=== PATIENT | female | born 1930 | race Caucasian/White ===

== ENCOUNTER 2019-01-15 14:44 | Inpatient (IN) | payer MEDICARE ==
[2019-01-15] MEDS ORDERED: ONDANSETRON 4 MG/2 ML VIAL IVP STA (15:14)
[2019-01-15] MEDS ORDERED: SODIUM CHLORIDE 0.9% 1,000 ML IV ONE ×2 (15:14)
[2019-01-15] MEDS ORDERED: MORPHINE SULFATE 4 MG/ML SYRINGE IV STA (15:14)
[2019-01-15 16:01] LABS: Basophils % (A) 1 %; Eosinophils # (A) 0.1 k/uL (0-0.7); Eosinophils % (A) 1 %; HCT 34.3 % (34.0-46.0); Lymphocytes # (A) 0.9 k/uL (1.0-4.8); Lymphocytes % (A) 13 %; MCH 30.4 pg (25.0-35.0); MCHC 32.2 g/dL (31.0-37.0); MCV 94.4 fL (80.0-100.0); Mean Platelet Volume 6.6; Monocytes # (A) 0.4 k/uL (0-1.0); Monocytes % (A) 6 %; Neutrophils # (A) 5.1 k/uL (1.3-7.7); Neutrophils % (A) 77 %; Platelet Count 296 k/uL (150-450); RBC 3.63 m/uL (3.80-5.40); RDW 12.9 % (11.5-15.5); WBC 6.6 k/uL (3.8-10.6)
[2019-01-15 16:16] LABS: Albumin 3.9 g/dL (3.5-5.0); Calcium 9.7 mg/dL (8.4-10.2); Potassium 4.1 mmol/L (3.5-5.1); Total Bilirubin 0.4 mg/dL (0.2-1.3); Total Protein 6.4 g/dL (6.3-8.2)
--- NOTE | 2019-01-15 16:20 | XR ---
EXAMINATION TYPE: XR Hip Complete LT DATE OF EXAM: 01/15/2019 CLINICAL HISTORY: Falling injury with pain. TECHNIQUE: AP and frogleg views of the left hip are obtained. COMPARISON: None. FINDINGS: Osseous structures are demineralized. There is acute comminuted displaced intertrochanteric fracture left proximal femur. Mild to moderate joint space loss left hip is seen without dislocation . Overlying clothing or blanket material is present. IMPRESSION: There is acute comminuted displaced intertrochanteric fracture left proximal femur.
--- NOTE | 2019-01-15 16:20 | ED ---
Fall HPI <Juancarlos Young - Last Filed: 01/15/19 16:43> - General Source: patient, EMS, RN notes reviewed, old records reviewed Mode of arrival: EMS <Jayde Sanzily - Last Filed: 01/15/19 17:06> - General Chief Complaint: Fall Stated Complaint: Fell leg fx Time Seen by Provider: 01/15/19 14:56 - History of Present Illness Initial Comments: Patient is an 88 rolled female per parents as were his parents today after tripping her own feet while she was at a [employer] function. She reports she's on her left hip. Unable to cannulate afterwards. She arrives via EMS with a short left leg. She has history of hypertension but no other medical history takes a low-dose antihypertensive pill. Patient denies any other injury related to the fall. (Paula Sanz) - Related Data Allergies Allergy/AdvReac Type Severity Reaction Status Date / Time No Known Allergies Allergy Verified 01/15/19 14:54 Review of Systems ROS Other: All systems not noted in ROS Statement are negative. <Juancarlos Young - Last Filed: 01/15/19 16:43> ROS Other: All systems not noted in ROS Statement are negative. <Jayde Sanzily - Last Filed: 01/15/19 17:06> ROS Statement: Those systems with pertinent positive or pertinent negative responses have been documented in the HPI. Past Medical History Past Medical History: Hypertension History of Any Multi-Drug Resistant Organisms: None Reported Past Surgical History: No Surgical Hx Reported Additional Past Surgical History / Comment(s): unsure of surgical hx Past Psychological History: No Psychological Hx Reported Smoking Status: Never smoker Past Alcohol Use History: None Reported Past Drug Use History: None Reported <Paula Sanz - Last Filed: 01/15/19 17:06> General Exam Limitations: no limitations Head exam: Present: atraumatic, normocephalic, normal inspection Eye exam: Present: normal appearance, PERRL, EOMI. Absent: scleral icterus, conjunctival injection, periorbital swelling ENT exam: Present: normal exam, mucous membranes moist Neck exam: Present: normal inspection. Absent: tenderness, meningismus, lymphadenopathy Respiratory exam: Present: normal lung sounds bilaterally. Absent: respiratory distress, wheezes, rales, rhonchi, stridor Cardiovascular Exam: Present: regular rate, normal rhythm, normal heart sounds. Absent: systolic murmur, diastolic murmur, rubs, gallop, clicks GI/Abdominal exam: Present: soft, normal bowel sounds. Absent: distended, tenderness, guarding, rebound, rigid Extremities exam: Present: normal inspection, full ROM, normal capillary refill. Absent: tenderness, pedal edema, joint swelling, calf tenderness Left Hip exam: Present: external rotation, shortening Upper Leg exam: Present: normal inspection, full ROM Knee exam: Present: normal inspection, full ROM Back exam: Present: normal inspection Neurological exam: Present: alert, oriented X3, CN II-XII intact <Paula Sanz - Last Filed: 01/15/19 17:06> - General Exam Comments Initial Comments: 88-year-old female. Alert and oriented 3. No distress. (Paula Sanz) Course <Juancarlos Young - Last Filed: 01/15/19 16:43> Vital Signs 01/15/19 14:49 Temperature 97.6 F Pulse Rate 70 Respiratory 18 Rate Blood Pressure 165/90 O2 Sat by Pulse 95 Oximetry - Reevaluation(s) Reevaluation #1: 01/15/19 16:26 PA supervision: I did a [id number] evaluation of the patient and did discuss the findings with her she has left hip pain x-ray does show evidence of a comminuted left intertrochanteric hip fracture. The case is discussed with Delfina Abebe covering Dr. Cavazos. Patient does demonstrate left hip pain is in the process of getting IV medication. I do agree with the assessment and plan. (Juancarlos Young) Medical Decision Making - Lab Data Result diagrams: 01/15/19 15:23 01/15/19 15:23 <Juancarlos Young - Last Filed: 01/15/19 16:43> - Lab Data Result diagrams: 01/15/19 15:23 01/15/19 15:23 - Radiology Data Radiology results: report reviewed <Paula Sanz - Last Filed: 01/15/19 17:06> - Medical Decision Making 88-year-old female presents emergency department today for chief complaint of. Patient reports that she was at discharge, tripped over. On her left hip. Patient does have shortening and rotation to her left leg. She is evidence of a left hip fracture. On x-ray. She is otherwise relatively healthy, only low- dose of blood pressure medication that she takes. She has no other related to her fall. Discusses actually turn her PA who accepts admission for Dr. walsh. We will consult medicine. Patient will be remaining nothing by mouth at midnight. (Paula Sanz) - Lab Data Lab Results 01/15/19 01/15/19 01/15/19 Range/Units 15:23 15:23 15:23 WBC 6.6 (3.8-10.6) k/uL RBC 3.63 L (3.80-5.40) m/uL Hgb 11.0 L (11.4-16.0) gm/dL Hct 34.3 (34.0-46.0) % MCV 94.4 (80.0-100.0) fL MCH 30.4 (25.0-35.0) pg MCHC 32.2 (31.0-37.0) g/dL RDW 12.9 (11.5-15.5) % Plt Count 296 (150-450) k/uL Neutrophils % 77 % Lymphocytes % 13 % Monocytes % 6 % Eosinophils % 1 % Basophils % 1 % Neutrophils # 5.1 (1.3-7.7) k/uL Lymphocytes # 0.9 L (1.0-4.8) k/uL Monocytes # 0.4 (0-1.0) k/uL Eosinophils # 0.1 (0-0.7) k/uL Basophils # 0.0 (0-0.2) k/uL PT 10.2 (9.0-12.0) sec INR 0.9 (<1.2) APTT 19.8 L (22.0-30.0) sec Sodium 140 (137-145) mmol/L Potassium 4.1 (3.5-5.1) mmol/L Chloride 106 (98-107) mmol/L Carbon Dioxide 28 (22-30) mmol/L Anion Gap 6 mmol/L BUN 34 H (7-17) mg/dL Creatinine 1.10 H (0.52-1.04) mg/dL Est GFR (CKD-EPI)AfAm 53 (>60 ml/min/1.73 sqM) Est GFR (CKD-EPI)NonAf 46 (>60 ml/min/1.73 sqM) Glucose 128 H (74-99) mg/dL Calcium 9.7 (8.4-10.2) mg/dL Total Bilirubin 0.4 (0.2-1.3) mg/dL AST 25 (14-36) U/L ALT 20 (9-52) U/L Alkaline Phosphatase 86 (38-126) U/L Total Protein 6.4 (6.3-8.2) g/dL Albumin 3.9 (3.5-5.0) g/dL 01/15/19 17:05 EKG performed at 1628 shows sinus rhythm with minimal voltage criteria for LVH may be normal variant. Borderline EKG. Ventricular rate of 85 bpm. LA interval is 152 ms. QRS duration is 76 most seconds. QT QTC 372/442 ms. (Paula Sanz) - Radiology Data Acute comminuted displaced intertrochanteric fracture of the left proximal femur. Chest x-ray shows chronic changes primarily without acute cardiac process. (Paula Sanz) Disposition <Juancarlos Young - Last Filed: 01/15/19 16:43> Is patient prescribed a controlled substance at d/c from ED?: No Time of Disposition: 17:06 <Paula Sanz - Last Filed: 01/15/19 17:06> Clinical Impression: Hip fracture, left Disposition: ADMITTED IP TO THIS HOSP Condition: Stable Referrals: Virgilio Wynn MD [Primary Care Provider] - 1-2 days
[2019-01-15 16:21] LABS: INR 0.9 (<1.2); Prothrombin Time 10.2 sec (9.0-12.0)
--- NOTE | 2019-01-15 16:21 | XR ---
EXAMINATION TYPE: XR chest 1V portable DATE OF EXAM: 01/15/2019 COMPARISON: Prior chest x-ray July 06, [address] chest July 10, 2010. HISTORY: Falling injury with hip pain. TECHNIQUE: Single frontal view of the chest is obtained. FINDINGS: There is chronic parenchymal changes without suspicious air focal air space opacity, pleur al effusion, or pneumothorax seen. The cardiac silhouette size shows increased enlargement with athe rosclerotic aorta. 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 Mass effect on the trachea redemonstrated. The osseous struct ures are demineralized. IMPRESSION: Chronic changes and cardiomegaly without acute pulmonary process.
[2019-01-15] MEDS ORDERED: MORPHINE SULFATE 2 MG/ML SYRINGE IM STA (16:32)
[2019-01-15] MEDS ORDERED: MORPHINE SULFATE 2 MG/ML SYRINGE IVP STA (16:33)
[2019-01-15 16:36] LABS: Partial Thromboplastin Time 19.8 sec (22.0-30.0)
[2019-01-15] MEDS ORDERED: LORazepam 2 MG/ML INJ IV STA (16:49)
[2019-01-15] MEDS ORDERED: MORPHINE SULFATE 4 MG/ML SYRINGE IV PRN (17:06)
[2019-01-15] MEDS ORDERED: LORazepam 2 MG/ML INJ IV PRN (17:06)
[2019-01-15] MEDS ORDERED: IBUPROFEN 400 MG TAB PO PRN (17:06)
[2019-01-15] MEDS ORDERED: KETOROLAC 30 MG/ML 1 ML VIAL IVP PRN (17:06)
[2019-01-15] MEDS ORDERED: NALOXONE 0.4 MG/ML 1 ML VIAL IV PRN (17:06)
[2019-01-15] MEDS ORDERED: ONDANSETRON 4 MG/2 ML VIAL IVP PRN (17:06)
[2019-01-15 17:55] LABS: Appearance,Urine Clear (Clear); Bilirubin,Urine Negative (Negative); Blood,Urine Negative (Negative); Color,Urine Light Yellow; Glucose,Urine (UA) Negative (Negative); Ketones,Urine Negative (Negative); Leukocyte Esterase,Urine Trace (Negative); Mucus,Urine Rare /hpf; Nitrite,Urine Negative (Negative); Protein,Urine Negative (Negative); RBC,Urine 3 /hpf (0-5); Specific Gravity,Urine 1.011 (1.001-1.035); Squamous Epithelial Cell,Urine <1 /hpf (0-4); Urobilinogen,Urine <2.0 mg/dL (<2.0); WBC,Urine 4 /hpf (0-5)
[2019-01-15] MEDS: SODIUM CHLORIDE 0.9% 1,000 ML IV SCH (19:58)
[2019-01-15] MEDS: BRIMONIDINE TARTRATE 0.2% DROPS 5 ML BTL LEFT EYE SCH (22:49)
[2019-01-15] MEDS: LATANOPROST 0.005% OPHTH DROPS 2.5 ML BTL LEFT EYE SCH (22:50)
[2019-01-16] MEDS: SODIUM CHLORIDE 0.9% 1,000 ML IV SCH ×3 (04:31→23:44)
[2019-01-16] MEDS: KETOROLAC 30 MG/ML 1 ML VIAL IVP PRN ×3 (07:39→20:55)
[2019-01-16] MEDS: BRIMONIDINE TARTRATE 0.2% DROPS 5 ML BTL LEFT EYE SCH ×2 (07:54→20:55)
[2019-01-16] MEDS: MULTIVITAMINS, THERA 1 EACH TAB PO SCH (07:58)
[2019-01-16] MEDS: PANTOPRAZOLE 40 MG/10 ML VIAL IV SCH (07:58)
[2019-01-16] MEDS: LISINOPRIL-HCTZ 10-12.5 MG 1 EACH TAB PO SCH (07:58)
[2019-01-16] MEDS ORDERED: [UNRECOGNIZED DRUG - OTHER] PO SCH (09:00)
--- NOTE | 2019-01-16 09:43 | P.HPOR ---
History of Present Illness H&P Date: 01/16/19 This is an 88-year-old female admitted for a left hip fracture. Patient states that on 01/15/2019 she was at her taoist when she tripped and fell. Patient states that she was unable to get up after this and was taken to the emergency room for evaluation. X-rays in the emergency room showed an intertrochanteric fracture of the left hip. Patient states that she lives alone and normally ambulates without difficulty. Patient denies any head injury or loss of consciousness. Patient's past medical history significant for hypertension and glaucoma. Patient denies any fever/chills, numbness, weakness, tingling, abdominal pain, shortness of breath or chest pain. Past Medical History Past Medical History: Eye Disorder, Hypertension Additional Past Medical History / Comment(s): glaucoma History of Any Multi-Drug Resistant Organisms: None Reported Past Surgical History: No Surgical Hx Reported Additional Past Surgical History / Comment(s): unsure of surgical hx Past Anesthesia/Blood Transfusion Reactions: Unable to Obtain Past Psychological History: No Psychological Hx Reported Smoking Status: Never smoker Past Alcohol Use History: None Reported Past Drug Use History: None Reported Medications and Allergies Home Medications Medication Instructions Recorded Confirmed Type Brimonidine Tartrate [Alphagan P 1 drops LEFT EYE BID 01/15/19 01/15/19 History 0.2% Ophth Soln] Latanoprost/Pf [Latanoprost 0.005% 1 drop LEFT EYE HS 01/15/19 01/15/19 History Eye Drop] Lisinopril-Hctz 10-12.5 mg 1 tab PO DAILY 01/15/19 01/15/19 History [Zestoretic 10-12.5] Multivitamins, Thera [Multivitamin 1 tab PO DAILY 01/15/19 01/15/19 History (formulary)] Prevident 5,000 Boost Plus 1 applic PO DAILY 01/15/19 01/15/19 History Allergies Allergy/AdvReac Type Severity Reaction Status Date / Time No Known Allergies Allergy Verified 01/15/19 17:45 Physical Examination On exam patient is lying comfortably in bed in no acute distress. Patient is alert and oriented 3. The left lower extremity is shortened and externally rotated. Calf is soft and nontender to palpation. Sensation intact to the left lower extremity. Patient has full range of motion of the left foot and ankle without pain or difficulty. Skin is intact. Neurovascular status and circulatory status are intact. Exams of the head, neck, bilateral upper extremities and right lower extremity are within normal limits. Results X-rays of the left hip and pelvis show a displaced intertrochanteric fracture of the left femur. - Labs Labs: Abnormal Lab Results - Last 24 Hours (Table) 01/15/19 01/15/19 01/15/19 Range/Units 15:23 15:23 15:23 RBC 3.63 L (3.80-5.40) m/uL Hgb 11.0 L (11.4-16.0) gm/dL Lymphocytes # 0.9 L (1.0-4.8) k/uL APTT 19.8 L (22.0-30.0) sec BUN 34 H (7-17) mg/dL Creatinine 1.10 H (0.52-1.04) mg/dL Glucose 128 H (74-99) mg/dL Ur Leukocyte Esterase (Negative) Urine Mucus (None) /hpf 01/15/19 Range/Units 17:17 RBC (3.80-5.40) m/uL Hgb (11.4-16.0) gm/dL Lymphocytes # (1.0-4.8) k/uL APTT (22.0-30.0) sec BUN (7-17) mg/dL Creatinine (0.52-1.04) mg/dL Glucose (74-99) mg/dL Ur Leukocyte Esterase Trace H (Negative) Urine Mucus Rare H (None) /hpf H & H 01/15/19 Range/Units 15:23 Hgb 11.0 L (11.4-16.0) gm/dL Hct 34.3 (34.0-46.0) % Coagulation 01/15/19 Range/Units 15:23 INR 0.9 (<1.2) Result Diagrams: 01/15/19 15:23 01/15/19 15:23 Assessment and Plan Assessment: Hypertension Glaucoma (1) Fall Current Visit: Yes Status: Acute Code(s): W19.XXXA - UNSPECIFIED FALL, INITIAL ENCOUNTER SNOMED Code(s): 7892822 (2) Hip fracture, left Current Visit: Yes Status: Acute Code(s): S72.002A - FRACTURE OF UNSP PART OF NECK OF LEFT FEMUR, INIT SNOMED Code(s): 477349137 Plan: 1. NPO after midnight. 2. Nonweightbearing to the left lower extremity. 3. Continue pain control. 4. Planning for closed reduction and IM nailing of the left hip on 01/17/[address] Griffin Cavazos pending medical clearance and patient consent.
[2019-01-16] MEDS ORDERED: LIDOCAINE 1% 20 ML VIAL (10MG/ML) FOR IV START INTRADERMA PRN (11:53)
[2019-01-16] MEDS ORDERED: ONDANSETRON 4 MG/2 ML VIAL IVP PRN (11:53)
[2019-01-16] MEDS ORDERED: MORPHINE SULFATE 2 MG/ML SYRINGE IV PRN (11:53)
[2019-01-16 13:25] LABS: Glucose,Whole Blood 118 mg/dL (75-99)
--- NOTE | 2019-01-16 16:33 | P.CON ---
Consult Note - . Consult date: 01/16/19 Assessment/Plan:: Reason for consult: Medical clearance for left hip fracture. Mrs. Brady is an 88-year-old female with a past medical history of hypertension and glaucoma admitted to the hospital for left proximal femur fracture. Patient states she was in the charts and after dinner trying to clean up when she turned towards one side and fell on her left hip. After the fall she was not able to ambulate and so brought in by EMS. In the ER patient had an x-ray of the left hip showing comminuted displaced intertrochanteric fracture of the left proximal femur. Patient's past medical history significant for hypertension and glaucoma and she takes latanoprost drops and lisinopril hydrochlorothiazide combination for her hypertension. On review of systems: Patient denies having any chest pain or palpitations. No cough or difficulty in breathing. On route pain nausea vomiting or diarrhea. No dysuria or hematuria. No headaches, blurring of vision.No speech abnormalities. No weakness of her extremities. At baseline patient does her ADLs by herself. Past Medical History Past Medical History: Eye Disorder, Hypertension Additional Past Medical History / Comment(s): glaucoma History of Any Multi-Drug Resistant Organisms: None Reported Past Surgical History: No Surgical Hx Reported Additional Past Surgical History / Comment(s): unsure of surgical hx Past Anesthesia/Blood Transfusion Reactions: Unable to Obtain Past Psychological History: No Psychological Hx Reported Smoking Status: Never smoker Past Alcohol Use History: None Reported Past Drug Use History: None Reported Medications and Allergies Home Medications Medication Instructions Recorded Confirmed Type Brimonidine Tartrate [Alphagan P 1 drops LEFT EYE BID 01/15/19 01/15/19 History 0.2% Ophth Soln] Latanoprost/Pf [Latanoprost 0.005% 1 drop LEFT EYE HS 01/15/19 01/15/19 History Eye Drop] Lisinopril-Hctz 10-12.5 mg 1 tab PO DAILY 01/15/19 01/15/19 History [Zestoretic 10-12.5] Multivitamins, Thera [Multivitamin 1 tab PO DAILY 01/15/19 01/15/19 History (formulary)] Prevident 5,000 Boost Plus 1 applic PO DAILY 01/15/19 01/15/19 History Allergies Allergy/AdvReac Type Severity Reaction Status Date / Time No Known Allergies Allergy Verified 01/15/19 17:45 Physical Exam Vitals: Vital Signs Temp Pulse Pulse Resp BP BP BP 01/16/19 07:00 98.1 F 74 16 157/79 01/16/19 01:43 97.8 F 62 18 135/68 01/15/19 22:52 122/58 01/15/19 19:12 98.0 F 81 16 185/91 01/15/19 18:06 97.7 F 77 18 168/82 Pulse Ox 01/16/19 07:00 95 01/16/19 01:43 95 01/15/19 22:52 01/15/19 19:12 98 01/15/19 18:06 99 Intake and Output 01/16/19 01/16/19 01/16/19 06:59 14:59 22:59 Intake Total 700 Output Total 1000 Balance -1000 700 Intake: Intake, IV Titration 700 Amount Sodium Chloride 0.9% 1, 700 000 ml @ 100 mls/hr IV . Q10H [facility] Rx#:[id number] Output: Urine 1000 Other: Voiding Method Indwelling Catheter GEN. APPEARANCE: alert, in no apparent distress HEENT: Normocephalic. No pallor. No icterus. No JVD. No thyromegaly. RESPIRATORY EXAM: normal lung sounds bilaterally. Absent: respiratory distress, wheezes, rales, rhonchi, stridor CARDIOVASCULAR EXAM: regular rate, normal rhythm, normal heart sounds. Absent: systolic murmur, diastolic murmur, rubs, gallop, clicks GI/ABDOMINAL EXAM: soft, normal bowel sounds. Absent: distended, tenderness, guarding, rebound, rigid EXTREMITIES EXAM: No pitting edema. Left limbus short and externally rotated. NEUROLOGICAL EXAM: alert, oriented X3, no focal deficits. PSYCHIATRIC EXAM: normal affect, normal mood SKIN EXAM: warm, dry, intact, normal color. Absent: rash Results CBC & Chem 7: 01/15/19 15:23 01/15/19 15:23 Labs: Abnormal Lab Results - Last 24 Hours (Table) 01/15/19 01/15/19 01/15/19 Range/Units 15:23 15:23 15:23 RBC 3.63 L (3.80-5.40) m/uL Hgb 11.0 L (11.4-16.0) gm/dL Lymphocytes # 0.9 L (1.0-4.8) k/uL APTT 19.8 L (22.0-30.0) sec BUN 34 H (7-17) mg/dL Creatinine 1.10 H (0.52-1.04) mg/dL Glucose 128 H (74-99) mg/dL POC Glucose (mg/dL) (75-99) mg/dL Ur Leukocyte Esterase (Negative) Urine Mucus (None) /hpf 01/15/19 01/16/19 Range/Units 17:17 13:13 RBC (3.80-5.40) m/uL Hgb (11.4-16.0) gm/dL Lymphocytes # (1.0-4.8) k/uL APTT (22.0-30.0) sec BUN (7-17) mg/dL Creatinine (0.52-1.04) mg/dL Glucose (74-99) mg/dL POC Glucose (mg/dL) 118 H (75-99) mg/dL Ur Leukocyte Esterase Trace H (Negative) Urine Mucus Rare H (None) /hpf ASSESSMENT Comminuted displaced left intertrochanteric femur fracture Hypertension Glaucoma Low BMI of 16.6 PLAN: Patient to be continued on current blood pressure medications. Continue with current pain management. Patient is a low risk surgical candidate and medically cleared for the surgery. Further recommendations to follow depending on the progress of the patient.
[2019-01-16] MEDS: LACTATED RINGERS 1,000 ML IV SCH (19:07)
[2019-01-16] MEDS: LATANOPROST 0.005% OPHTH DROPS 2.5 ML BTL LEFT EYE SCH ×2 (20:55→20:56)
[2019-01-17] MEDS: KETOROLAC 30 MG/ML 1 ML VIAL IVP PRN (05:05)
[2019-01-17] MEDS: MULTIVITAMINS, THERA 1 EACH TAB PO SCH (07:19)
[2019-01-17] MEDS: LISINOPRIL-HCTZ 10-12.5 MG 1 EACH TAB PO SCH (07:43)
[2019-01-17] MEDS: BRIMONIDINE TARTRATE 0.2% DROPS 5 ML BTL LEFT EYE SCH ×2 (07:43→20:03)
[2019-01-17] MEDS: PANTOPRAZOLE 40 MG/10 ML VIAL IV SCH (07:43)
[2019-01-17] MEDS: SODIUM CHLORIDE 0.9% 1,000 ML IV SCH ×3 (07:44→19:54)
[2019-01-17] MEDS ORDERED: KETAMINE 10 MG/ML 20 ML VIAL ONE (09:44)
[2019-01-17] MEDS ORDERED: diphenhydrAMINE 50 MG/ML 1 ML VIAL ONE (09:44)
[2019-01-17] MEDS ORDERED: fentaNYL (PF) 50 MCG/ML 2 ML AMP ONE (09:44)
[2019-01-17] MEDS ORDERED: MIDAZOLAM 2 MG/2 ML VIAL ONE (09:44)
[2019-01-17] MEDS ORDERED: SODIUM CHLORIDE 0.9% 1,000 ML IV ONE ×2 (09:49→12:24)
[2019-01-17] MEDS ORDERED: ceFAZolin 1,000 MG VIAL IVPB ONE (09:59)
[2019-01-17] MEDS ORDERED: NALOXONE 0.4 MG/ML 1 ML VIAL IV PRN (11:19)
[2019-01-17] MEDS ORDERED: MAGNESIUM HYDROXIDE 2,400 MG/10 ML CUP PO PRN (11:19)
[2019-01-17] MEDS ORDERED: HYDROmorphone 0.5 MG/0.5 ML SYRINGE IVP PRN ×2 (11:19)
[2019-01-17] MEDS ORDERED: ACETAMINOPHEN TAB 325 MG TAB PO PRN (11:27)
--- NOTE | 2019-01-17 11:28 | P.OP ---
Date of Procedure: 01/17/19 Preoperative Diagnosis: Closed four-part intertrochanteric fracture of the left hip Postoperative Diagnosis: Closed four-part intertrochanteric fracture of the left hip Procedure(s) Performed: Close reduction and intramedullary nailing of the 4 part intratrochanteric fracture of the left hip Implants: [employer] Intertan nail 125, 11.5 mm x 18 cm. [employer] Intertan integrated-interlocking lag screw, 90 mm lag screw, 85 mm compression screw. [employer] L-P screw, 5.0 mm x 27.5 mm. Anesthesia: spinal Surgeon: Griffin Cavazos Final Dressing Cutter #1: Delfina Abebe Estimated Blood Loss (ml): 150 Pathology: none sent Condition: stable Disposition: PACU Indications for Procedure: This is an 88-year-old female has sustained a ground-level fall at home. Patient was seen in the emergency room and diagnosed with an intertrochanteric fracture of her left hip. After discussing the surgical risks and complications with her and her family, I recommended a close reduction and intramedullary nailing of her left hip. Informed consent was obtained. Operative Findings: The operative findings are consistent with a closed four-part intertrochanteric fracture of the left hip Description of Procedure: The patient was seen in the preoperative area, consent was reviewed, and the operative site was marked with a skin marker. The surgical procedure was discussed at length with both the patient and the family at the bedside. All questions were answered to the best of my ability. The patient was brought to the operating room and placed on the fracture table. Anesthesia was administered by the anesthesia department. 2 g of Ancef were administered intravenously. The patient was placed supine on the fracture table with the fractured extremity in traction boot. The other extremity was placed in a well leg braun and the bony prominences were well padded. A universal timeout was then performed which confirmed the patient's name, surgical site, ALLERGIES, and consent. Fracture reduction was performed with a traction and abduction maneuver which was confirmed with fluoroscopy, both AP and lateral views.. After reduction was performed, the extremity was then prepped with ChloraPrep solution and draped in the usual sterile fashion. Utilizing fluoroscopy to identify the tip of the greater trochanter, a 3 cm longitudinal incision was made just proximal to the greater trochanter. Incision was carried through the fascia to the tip of the greater trochanter. Utilizing a curved awl, the entry point was created at the tip of the greater trochanter and centralized in the AP and lateral planes. These locations were confirmed by fluoroscopy. A guidewire was then inserted down the medullary canal. Sequentially reaming of the femur was performed to 13 mm distally and 17 mm proximally with the channel reamer. After reaming, appropriate size nail was inserted over the guidewire. The nail was inserted to the appropriate depth and the guidewire was removed. Placement of the lisa was confirmed with both AP and lateral fluoroscopic views. The lag screw drill sleeve was placed in the jig and a small skin incision was made on the lateral aspect of the leg and the lag screw drill sleeve was locked into the guide. The 3.2 mm guide pin sleeve was inserted through the lag screw drill sleeve down to bone. A 3.2 mm distally threaded guidewire was inserted through the guide pin sleeve. The guidewire was inserted in the desired position in the femoral head, both anterior and posterior. The lag screw length cage was inserted over the guidepin to the back of the lag screw drill sleeve. Lag screw length was then measured from the cage. Next, the 7.0 mm compression screw starter drill was inserted in the lag screw drill sleeve beneath the guidepin. The compression screw starter drill was advanced under power until it abutted the back and of the lag screw drill sleeve. The 7.0 mm compression screw drill was inserted through the lag screw drill sleeve into the hole created by the compression screw starter drill. This was advanced under fluoroscopy to a depth 5 mm less and the measurement taken for the guidepin. The compression screw drill was removed and the antirotation bar was inserted into the same hole. The 3.2 mm guide pin sleeve was then removed from the drill guide. The lag screw drill was then inserted to a depth that was measured by the lag screw gauge. This was done under fluoroscopy. The lag screw was inserted over the guidewire to the appropriate depth using fluoros copy. Traction was then released. The antirotation bar was then removed and the compression screw was advanced through the lag screw drill sleeve beneath the lag screw. This was advanced to the appropriate compression was achieved. The proximal drill guide was then removed and the distal drill guide was then inserted in the jig. Skin incision was made down to bone and the distal drill guide was then placed. Distal hole was then drilled with a 4.0 mm drill and measured to the appropriate depth. Distal screw was then placed. The entire assembly was then removed and final fluoroscopic x-rays were obtained. The wounds were then irrigated copiously with saline solution. Fascia was closed with 0-Vicryl. Subcutaneous tissues were closed with 2-0 Vicryl and the skin was closed with tomer. Sterile dressings were applied. The patient was transported to the recovery room in stable condition. The public aid eligibility assistant PENNIE Murrieta was required due the complexity of surgery the need for skilled ophthalmology surgical technician for positioning draping retraction and fracture reduction.
[2019-01-17 11:46] LABS: Basophils % (A) 0 %; Eosinophils % (A) 0 %; HGB 10.4 gm/dL (11.4-16.0); Lymphocytes # (A) 0.6 k/uL (1.0-4.8); Lymphocytes % (A) 6 %; MCHC 32.5 g/dL (31.0-37.0); MCV 95.3 fL (80.0-100.0); Mean Platelet Volume 7.2; Monocytes # (A) 0.6 k/uL (0-1.0); Monocytes % (A) 6 %; Neutrophils # (A) 8.7 k/uL (1.3-7.7); Neutrophils % (A) 87 %; Platelet Count 205 k/uL (150-450); RBC 3.35 m/uL (3.80-5.40); RDW 12.8 % (11.5-15.5)
[2019-01-17] MEDS ORDERED: HYDROmorphone 0.5 MG/0.5 ML SYRINGE IVP ONE (12:10)
[2019-01-17] MEDS ORDERED: ONDANSETRON 4 MG/2 ML VIAL IVP ONE (12:22)
--- NOTE | 2019-01-17 12:31 | FL ---
FLUOROSCOPY 54 seconds of fluoroscopy time were utilized during IM rodding of the left hip. 2 images document the procedure.
--- NOTE | 2019-01-17 12:35 | XR ---
EXAMINATION TYPE: XR Hip Limited LT , ONE VIEW DATE OF EXAM ORDERED: 01/17/2019 HISTORY: post op. COMPARISON: None. FINDINGS: There has been a dynamic hip pinning of the patient's left hip. Alignment of the fracture fragments is near-anatomic. IMPRESSION: SATISFACTORY APPEARANCE, POST LEFT HIP PINNING.
[2019-01-17] MEDS: HYDROmorphone 0.5 MG/0.5 ML SYRINGE IVP PRN ×2 (13:03→20:03)
--- NOTE | 2019-01-17 17:53 | P.PN ---
Subjective Progress Note Date: 01/17/19 Principal diagnosis: Status post closed reduction and intramedullary nailing of intertrochanteric fracture of the left hip Mrs. Brady is an 88-year-old female with a past medical history of hypertension and glaucoma admitted to the hospital for left proximal femur fracture. Patient states she was in the charts and after dinner trying to clean up when she turned towards one side and fell on her left hip. After the fall she was not able to ambulate and so brought in by EMS. In the ER patient had an x-ray of the left hip showing comminuted displaced intertrochanteric fracture of the left proximal femur. Patient's past medical history significant for hypertension and glaucoma and she takes latanoprost drops and lisinopril hydrochlorothiazide combination for her hypertension. On 01/27/2019 - patient chest, back from the OR. She had closed reduction and intramedullary nailing of the hand trapped trochanteric fracture of the left hip. She complains of pain in her left hip. She denies having any chest pain or palpitations. No cough or difficulty in breathing. No abdominal pain nausea vomiting or diarrhea. Patient has a Palmer's catheter in place. Patient's labs and medications have been reviewed. Active Medications Acetaminophen (Tylenol Tab) 650 mg PO Q8H PRN PRN Reason: Fever and/ or Pain Hydrocodone Bitart/Acetaminophen ([place] 5-325) 1 each PO Q6HR PRN PRN Reason: Pain Scale 1 to 5 Hydrocodone Bitart/Acetaminophen ([place] 5-325) 2 each PO Q6HR PRN PRN Reason: Pain Scale 6 to 10 Brimonidine Tartrate (Alphagan P 0.2% Oph Soln) 1 drops LEFT EYE BID [facility] Last Admin: 01/17/19 07:43 Dose: 1 drops Documented by: Lisinopril/HCTZ (Zestoretic 10-12.5) 1 each PO DAILY [facility] Last Admin: 01/17/19 07:43 Dose: 1 each Documented by: Hydromorphone HCl (Dilaudid) 0.125 mg IVP Q3HR PRN PRN Reason: Pain Scale 1 to 3 Hydromorphone HCl (Dilaudid) 0.25 mg IVP Q3HR PRN PRN Reason: Pain Scale 4 to 6 Hydromorphone HCl (Dilaudid) 0.5 mg IVP Q3HR PRN PRN Reason: Pain Scale 7 to 10 Last Admin: 01/17/19 13:03 Dose: 0.5 mg Documented by: Sodium Chloride (Saline 0.9%) 1,000 mls @ 100 mls/hr IV .Q10H [facility] Last Admin: 01/17/19 07:44 Dose: 100 mls/hr Documented by: Lactated Ringer's (Lactated Ringers) 1,000 mls @ 20 mls/hr IV .Q24H [facility] Last Admin: 01/16/19 19:07 Dose: Not Given Documented by: Sodium Chloride (Saline 0.9%) 1,000 mls @ 60 mls/hr IV .[id number] [facility] Cefazolin Sodium 2 gm/ Sodium (Chloride) 50 mls @ 100 mls/hr IVPB Q8H [facility] Stop: 01/18/19 02:29 Last Admin: 01/17/19 16:59 Dose: 100 mls/hr Documented by: Latanoprost (Xalatan 0.005%) 1 drops LEFT EYE [facility] Last Admin: 01/16/19 20:56 Dose: Not Given Documented by: Lidocaine HCl (.Xylocaine 1% Inj (10mg/Ml) For Iv Start) 0.1 ml INTRADERMA PER PROTOCOL PRN PRN Reason: IV Start Lorazepam (Ativan) 0.5 mg IV Q6HR PRN PRN Reason: Anxiety Magnesium Hydroxide (Milk Of Magnesia) 2,400 mg PO DAILY PRN PRN Reason: Constipation Multivitamins (Theragran) 1 each PO DAILY [facility] Last Admin: 01/17/19 07:19 Dose: Not Given Documented by: Naloxone HCl (Narcan) 0.2 mg IV Q2M PRN PRN Reason: Opioid Reversal Naloxone HCl (Narcan) 0.2 mg IV Q2M PRN PRN Reason: Opioid Reversal Ondansetron HCl (Zofran) 4 mg IVP Q8HR PRN PRN Reason: Nausea And Vomiting Pantoprazole Sodium (Protonix) 40 mg IV DAILY [facility] Last Admin: 01/17/19 07:43 Dose: 40 mg Documented by: Rivaroxaban (Xarelto) 10 mg PO DAILY [facility] Senna/Docusate Sodium (Senokot-S) 2 each PO [facility] Objective - Vital Signs Vital signs: Vital Signs Temp 98.0 F 01/17/19 12:50 Pulse 95 01/17/19 12:50 Resp 16 01/17/19 12:50 BP 134/68 01/17/19 12:50 Pulse Ox 93 L 01/17/19 12:50 Intake & Output 01/16/19 01/17/19 01/17/19 18:59 06:59 18:59 Intake Total 700 1000 800 Output Total 725 580 Balance 700 275 220 Weight 45.359 kg Intake: IV 800 Intake, IV Titration 700 1000 Amount Sodium Chloride 0.9% 1, 700 1000 000 ml @ 100 mls/hr IV . Q10H [facility] Rx#:[id number] Output: Urine 725 430 Estimated Blood Loss 150 Other: Voiding Method Indwelling Catheter Indwelling Catheter Indwelling Catheter - Exam GEN. APPEARANCE: alert, in no apparent distress HEENT: Normocephalic. No pallor. No icterus. No JVD. No thyromegaly. RESPIRATORY EXAM: normal lung sounds bilaterally. No wheeze or crackles. CARDIOVASCULAR EXAM: regular rate, normal rhythm, normal heart sounds. GI/ABDOMINAL EXAM: soft, normal bowel sounds. No tenderness. EXTREMITIES EXAM: No pitting edema. Left lower extremity - neurovascularly intact. NEUROLOGICAL EXAM: alert, oriented X3, no focal deficits. - Labs CBC & Chem 7: 01/17/19 10:06 01/15/19 15:23 Labs: Abnormal Lab Results - Last 24 Hours (Table) 01/16/19 01/17/19 Range/Units 13:13 10:06 RBC 3.35 L (3.80-5.40) m/uL Hgb 10.4 L (11.4-16.0) gm/dL Hct 32.0 L (34.0-46.0) % Neutrophils # 8.7 H (1.3-7.7) k/uL Lymphocytes # 0.6 L (1.0-4.8) k/uL POC Glucose (mg/dL) 118 H (75-99) mg/dL Assessment and Plan Assessment: ASSESSMENT Comminuted displaced left intertrochanteric femur fracture Status post closed reduction and intramedullary nailing of intertrochanteric fracture of left hip Hypertension Glaucoma Low BMI of 16.6 PLAN: Patient's blood pressure running within normal limits. DVT prophylaxis as per primary care team. Encouraged to do incentive spirometry. Further r ecommendations depending on the progress of the patient.
[2019-01-17] MEDS: LACTATED RINGERS 1,000 ML IV SCH (19:53)
[2019-01-17] MEDS: LATANOPROST 0.005% OPHTH DROPS 2.5 ML BTL LEFT EYE SCH (20:02)
[2019-01-17] MEDS: SENNOSIDES-DOCUSATE SODIUM 1 EACH TAB PO SCH (20:03)
[2019-01-18] MEDS: SODIUM CHLORIDE 0.9% 1,000 ML IV SCH ×3 (05:36→06:20)
[2019-01-18] MEDS: LISINOPRIL-HCTZ 10-12.5 MG 1 EACH TAB PO SCH (08:46)
[2019-01-18] MEDS: RIVAROXABAN 10 MG TAB PO SCH (08:46)
[2019-01-18] MEDS: HYDROcodone/APAP 5-325MG 1 EACH TAB PO PRN ×3 (08:46→22:03)
[2019-01-18] MEDS: BRIMONIDINE TARTRATE 0.2% DROPS 5 ML BTL LEFT EYE SCH ×2 (08:46→22:02)
[2019-01-18] MEDS: MULTIVITAMINS, THERA 1 EACH TAB PO SCH (08:46)
[2019-01-18] MEDS: PANTOPRAZOLE 40 MG/10 ML VIAL IV SCH (08:47)
--- NOTE | 2019-01-18 09:38 | P.PN ---
Subjective Progress Note Date: 01/18/19 This is an 88-year-old female who is status post closed reduction and intramedullary nailing of the left hip. This is postoperative day #1 and patient is seen and evaluated at bedside. Patient states that her pain is controlled, but she has not been out of bed yet. Patient denies any new complaints today. Patient denies any fever/chills, numbness, weakness, tingling, abdominal pain, shortness of breath or chest pain. Objective - Vital Signs Vital signs: Vital Signs Temp 98.0 F 01/18/19 07:32 Pulse 93 01/18/19 07:32 Resp 18 01/18/19 07:32 BP 130/81 01/18/19 07:32 Pulse Ox 94 L 01/18/19 07:32 Intake & Output 01/17/19 01/18/19 01/18/19 18:59 06:59 18:59 Intake Total 1220 Output Total 580 400 Balance 640 -400 Intake: IV 800 Intake, IV Titration 420 Amount Sodium Chloride 0.9% 1, 420 000 ml @ 60 mls/hr IV . [id number] COUNTS INCLUDE 234 BEDS AT THE [facility] Rx#:[id number] Output: Urine 430 400 Estimated Blood Loss 150 Other: Voiding Method Indwelling Catheter Indwelling Catheter Indwelling Catheter - Exam Vital signs are stable. Patient is in no acute distress and is alert and orie nted 3. Calf is soft and nontender to palpation. Dressing is clean, dry, and intact. Patient has full foot and ankle motion without pain or difficulty. Neurovascular status and circulatory status are intact. - Labs CBC & Chem 7: 01/17/19 10:06 01/15/19 15:23 Labs: Abnormal Lab Results - Last 24 Hours (Table) 01/17/19 Range/Units 10:06 RBC 3.35 L (3.80-5.40) m/uL Hgb 10.4 L (11.4-16.0) gm/dL Hct 32.0 L (34.0-46.0) % Neutrophils # 8.7 H (1.3-7.7) k/uL Lymphocytes # 0.6 L (1.0-4.8) k/uL Assessment and Plan Assessment: Hypertension Glaucoma (1) Fall Current Visit: Yes Status: Acute Code(s): W19.XXXA - UNSPECIFIED FALL, INITIAL ENCOUNTER SNOMED Code(s): 4080307 (2) Hip fracture, left Current Visit: Yes Status: Acute Code(s): S72.002A - FRACTURE OF UNSP PART OF NECK OF LEFT FEMUR, INIT SNOMED Code(s): 901817595 Plan: Continue routine postop care and pain control. Continue anticoagulation with Xarelto. Weightbearing as tolerated with a walker and physical therapy. Daily dressing changes. Appreciate input from medicine. Likely discharge to ECF in the next 24-48 hours
--- NOTE | 2019-01-18 12:05 | P.PN ---
Subjective Patient resting in bed complains of chest pain. EKG and troponins ordered. Patient sitting up in chair no swelling or pain to calves Objective - Vital Signs Vital signs: Vital Signs Temp 98.0 F 01/18/19 07:32 Pulse 95 01/18/19 11:22 Resp 18 01/18/19 07:32 BP 95/57 01/18/19 11:22 Pulse Ox 94 L 01/18/19 07:32 Intake & Output 01/17/19 01/18/19 01/18/19 18:59 06:59 18:59 Intake Total 1220 Output Total 580 400 Balance 640 -400 Intake: IV 800 Intake, IV Titration 420 Amount Sodium Chloride 0.9% 1, 420 000 ml @ 60 mls/hr IV . [id number] [facility] Rx#:[id number] Output: Urine 430 400 Estimated Blood Loss 150 Other: Voiding Method Indwelling Catheter Indwelling Catheter Indwelling Catheter - Constitutional General appearance: Present: mild distress - EENT Eyes: Present: PERRLA Ears: bilateral: normal - Neck Neck: Present: normal ROM - Respiratory Respiratory: bilateral: CTA - Cardiovascular Rhythm: regular - Gastrointestinal General gastrointestinal: Present: normal bowel sounds, soft - Integumentary Integumentary: Present: normal - Neurologic Neurologic: Present: CNII-XII intact - Musculoskeletal Musculoskeletal: Present: generalized weakness - Psychiatric Psychiatric: Present: A&O x's 3 - Labs CBC & Chem 7: 01/17/19 10:06 01/15/19 15:23 - Imaging and Cardiology Chest x-ray: report reviewed Assessment and Plan Plan: Assessment Fall comminuted left intertrochanteric fracture Post closed reduction and nailing of intertrochanter fracture of left hip Hypertension Glaucoma Chest pain Plan EKG and troponin series Long-term plan is transfer to [facility] for rehab
[2019-01-18] MEDS: LACTATED RINGERS 1,000 ML IV SCH (15:06)
[2019-01-18] MEDS: SENNOSIDES-DOCUSATE SODIUM 1 EACH TAB PO SCH (22:02)
[2019-01-18] MEDS: LATANOPROST 0.005% OPHTH DROPS 2.5 ML BTL LEFT EYE SCH (22:03)
[2019-01-19 07:30] LABS: Basophils % (A) 0 %; Eosinophils # (A) 0.3 k/uL (0-0.7); Eosinophils % (A) 4 %; Lymphocytes # (A) 1.2 k/uL (1.0-4.8); Lymphocytes % (A) 12 %; MCH 30.9 pg (25.0-35.0); MCHC 31.7 g/dL (31.0-37.0); MCV 97.5 fL (80.0-100.0); Mean Platelet Volume 7.8; Monocytes # (A) 0.7 k/uL (0-1.0); Monocytes % (A) 7 %; Neutrophils # (A) 7.1 k/uL (1.3-7.7); Neutrophils % (A) 75 %; Platelet Count 217 k/uL (150-450); RBC 1.83 m/uL (3.80-5.40); RDW 13.4 % (11.5-15.5); WBC 9.5 k/uL (3.8-10.6)
[2019-01-19 07:44] LABS: HCT 17.8 % (34.0-46.0); HGB 5.7 gm/dL (11.4-16.0)
[2019-01-19] MEDS: RIVAROXABAN 10 MG TAB PO SCH (08:12)
[2019-01-19] MEDS: MULTIVITAMINS, THERA 1 EACH TAB PO SCH (08:12)
[2019-01-19] MEDS: LISINOPRIL-HCTZ 10-12.5 MG 1 EACH TAB PO SCH (08:12)
[2019-01-19] MEDS: BRIMONIDINE TARTRATE 0.2% DROPS 5 ML BTL LEFT EYE SCH ×2 (08:12→20:10)
[2019-01-19] MEDS: PANTOPRAZOLE 40 MG TABLET PO SCH (08:12)
[2019-01-19] MEDS: HYDROcodone/APAP 5-325MG 1 EACH TAB PO PRN ×2 (08:12→18:59)
[2019-01-19] MEDS: SODIUM CHLORIDE 0.9% 1,000 ML IV SCH ×5 (08:14→23:42)
[2019-01-19 09:33] LABS: Hypochromasia Slight; MCHC 31.4 g/dL (31.0-37.0); MCV 98.8 fL (80.0-100.0); Mean Platelet Volume 8.8; Platelet Count 234 k/uL (150-450); RBC 1.79 m/uL (3.80-5.40); RDW 13.3 % (11.5-15.5); WBC 10.6 k/uL (3.8-10.6)
[2019-01-19 09:41] LABS: HGB 5.5 gm/dL (11.4-16.0)
[2019-01-19 09:42] LABS: HCT 17.6 % (34.0-46.0)
[2019-01-19] MEDS ORDERED: FUROSEMIDE 10 MG/ML 2 ML VIAL IV ONE (11:16)
--- NOTE | 2019-01-19 11:40 | P.PN ---
Subjective Patient found to have a hemoglobin of 5.7 this morning. Stat CBC and blood transfusion ordered 2 units. Patient is warm and dry but pale. Alert and orientated. Patient had negative occult blood for stool. No large hematoma noted Objective - Vital Signs Vital signs: Vital Signs Temp 98.0 F 01/19/19 11:21 Pulse 86 01/19/19 11:34 Resp 20 01/19/19 11:21 BP 104/61 01/19/19 11:34 Pulse Ox 99 01/19/19 11:34 Intake & Output 01/18/19 01/19/19 01/19/19 18:59 06:59 18:59 Intake Total 800 0 Output Total 200 Balance 600 0 Intake: IV 800 Sodium Chloride 0.9% 1, 800 000 ml @ 100 mls/hr IV . Q10H [facility] Rx#:[id number] Blood Product 0 Rc Pheresis As-3 Unit 0 [id number] Output: Urine 200 Uretheral (Palmer) 200 Other: Voiding Method Indwelling Catheter Indwelling Catheter - Constitutional General appearance: Present: mild distress - EENT Eyes: Present: PERRLA Ears: bilateral: normal - Neck Neck: Present: normal ROM - Respiratory Respiratory: bilateral: CTA - Cardiovascular Rhythm: regular - Gastrointestinal General gastrointestinal: Present: soft - Integumentary Integumentary: Present: pale - Neurologic Neurologic: Present: CNII-XII intact - Musculoskeletal Musculoskeletal Comment(s): Left hip pain dressing intact Musculoskeletal: Present: generalized weakness - Psychiatric Psychiatric: Present: A&O x's 3, appropriate affect - Labs CBC & Chem 7: 01/19/19 09:17 01/15/19 15:23 Labs: Abnormal Lab Results - Last 24 Hours (Table) 01/17/19 01/19/19 01/19/19 Range/Units 09:09 06:55 09:17 RBC 1.83 L 1.79 L (3.80-5.40) m/uL Hgb 5.7 L* D 5.5 L* (11.4-16.0) gm/dL Hct 17.8 L* 17.6 L* (34.0-46.0) % Crossmatch See Detail Assessment and Plan Plan: Assessment Comminuted displaced left intertrochanter fracture post reduction of intertrochanter fracture left hip Hypertension Postop anemia 5.7 not expected Glaucoma Chest pain troponin negative Plan Blood transfusion monitor hemoglobin [facility]
--- NOTE | 2019-01-19 13:37 | CDI ---
Documentation Clarification Form Date: 01/19/2019 1:32:20 PM From: Yajaira HillsNoelYUNIOR vieira, CCDS Admit Date: 01/15/2019 4:27:00 PM Patient Name: Edith Brady Visit Number: [id number] Discharge Date: ATTENTION: The Clinical Documentation Specialists (CDI) and [facility] Coding Staff appreciate your assistance in clarifying documentation. Please respond to the clarification below the line at the bottom and electronically sign. The CDI & [facility] Coding staff will review the response and follow-up if needed. Please note: Queries are made part of the Legal Health Record. If you have any questions, please contact the author of this message via ITS. Dr. Virgilio Wynn: A diagnosis of anemia lacks specificity to accurately reflect your patients severity of condition and clarification is needed. Per the 01/19 medical management progress note: "Postop anemia 5.7 not expected." History/Risk Factors: Hypertension, glaucoma. Clinical indicators: Presented after a fall with left IT fracture status post repair. Hemoglobin: 11.0*, 10.4* - 5.7 - 5.5 Hematocrit: 34.3 - 32.0* - 17.8 - 17.6 Treatment: Closed reduction & intramedullary nailing of the 4 pat IT fracture of the left hip. IV Ms, IV Zofran, IV fl 100, IV fluid bolus x1, IV Ativan, IV Toradol. Blood transfusion on 01/19 1 unit PRBCs. In order to capture the severity of condition, please clarify the type of anemia and etiology if known: Acute blood loss anemia Acute on chronic blood loss anemia Chronic blood loss anemia Iron deficiency anemia Hemolytic anemia Drug induced anemia Nutritional anemia Unable to determine Other, please specify (Last Revision: November 2016) MTDD
--- NOTE | 2019-01-19 14:13 | P.PN ---
Subjective Progress Note Date: 01/19/19 This is an 88-year-old female who is status post closed reduction and intramedullary nailing of the left hip. This is postoperative day #3 and patient is seen and evaluated at bedside with Dr. Griffin Cavazos. Patient states that her pain is controlled today. Patient's hemoglobin is 5.5 today. Patient denies any dizziness. Patient denies any new complaints today. Patient denies any fever/chills, numbness, weakness, tingling, abdominal pain, shortness of breath or chest pain. Objective - Vital Signs Vital signs: Vital Signs Temp 98.3 F 01/19/19 11:51 Pulse 84 01/19/19 11:51 Resp 20 01/19/19 11:51 BP 103/59 01/19/19 11:51 Pulse Ox 98 01/19/19 11:51 Intake & Output 01/18/19 01/19/19 01/19/19 18:59 06:59 18:59 Intake Total 800 310 Output Total 200 Balance 600 310 Intake: IV 800 Sodium Chloride 0.9% 1, 800 000 ml @ 100 mls/hr IV . Q10H [facility] Rx#:[id number] Blood Product 310 Rc Pheresis As-3 Unit 310 [id number] Output: Urine 200 Uretheral (Palmer) 200 Other: Voiding Method Indwelling Catheter Indwelling Catheter - Exam Vital signs are stable. Patient is in no acute distress and is alert and orient ed 3. Calf is soft and nontender to palpation. Dressing is clean, dry, and intact. There is minimal swelling of the left lower extremity. Compartments are soft. Patient has full foot and ankle motion without pain or difficulty. Neurovascular status and circulatory status are intact. - Labs CBC & Chem 7: 01/19/19 09:17 01/15/19 15:23 Labs: Abnormal Lab Results - Last 24 Hours (Table) 01/17/19 01/19/19 01/19/19 Range/Units 09:09 06:55 09:17 RBC 1.83 L 1.79 L (3.80-5.40) m/uL Hgb 5.7 L* D 5.5 L* (11.4-16.0) gm/dL Hct 17.8 L* 17.6 L* (34.0-46.0) % Crossmatch See Detail Assessment and Plan Assessment: Hypertension Glaucoma (1) Fall Current Visit: Yes Status: Acute Code(s): W19.XXXA - UNSPECIFIED FALL, INITIAL ENCOUNTER SNOMED Code(s): 7463212 (2) Hip fracture, left Current Visit: Yes Status: Acute Code(s): S72.002A - FRACTURE OF UNSP PART OF NECK OF LEFT FEMUR, INIT SNOMED Code(s): 165229642 Plan: Continue routine postop care and pain control. Xarelto is being held due to hemoglobin of 5.5. Patient did receive a blood transfusion. Weightbearing as tolerated with a walker and physical therapy. Daily dressing changes. Appreciate input from medicine. Likely discharge to ECF in the next 24-48 hours.
[2019-01-19] MEDS: LACTATED RINGERS 1,000 ML IV SCH (18:09)
[2019-01-19] MEDS: SENNOSIDES-DOCUSATE SODIUM 1 EACH TAB PO SCH (20:09)
[2019-01-19] MEDS: LATANOPROST 0.005% OPHTH DROPS 2.5 ML BTL LEFT EYE SCH (20:09)
[2019-01-19 22:39] LABS: Basophils % (A) 0 %; Eosinophils # (A) 0.4 k/uL (0-0.7); Eosinophils % (A) 5 %; HCT 23.2 % (34.0-46.0); Lymphocytes # (A) 1.3 k/uL (1.0-4.8); Lymphocytes % (A) 13 %; MCH 31.9 pg (25.0-35.0); MCHC 33.7 g/dL (31.0-37.0); MCV 94.8 fL (80.0-100.0); Monocytes # (A) 0.7 k/uL (0-1.0); Monocytes % (A) 7 %; Neutrophils # (A) 6.9 k/uL (1.3-7.7); Neutrophils % (A) 72 %; Platelet Count 207 k/uL (150-450); RBC 2.45 m/uL (3.80-5.40); RDW 13.8 % (11.5-15.5); WBC 9.6 k/uL (3.8-10.6)
[2019-01-19 22:41] LABS: HGB 7.8 gm/dL (11.4-16.0)
[2019-01-20] MEDS: SODIUM CHLORIDE 0.9% 1,000 ML IV SCH ×3 (06:35→16:06)
[2019-01-20] MEDS: LACTATED RINGERS 1,000 ML IV SCH (07:15)
--- NOTE | 2019-01-20 08:28 | P.PN ---
Subjective Progress Note Date: 01/20/19 This is an 88-year-old female who is status post closed reduction and intramedullary nailing of the left hip. This is postoperative day #4 and patient is seen and evaluated at bedside with Dr. Griffin Cavazos. Patient does complain of some soreness in the left hip today and states that she was not up and walking yesterday due to her low hemoglobin. The patient's hemoglobin has improved today. Patient denies any dizziness. Patient denies any new complaints today. Patient denies any fever/chills, numbness, weakness, tingling, abdominal pain, shortness of breath or chest pain. Objective - Vital Signs Vital signs: Vital Signs Temp 98.1 F 01/20/19 07:30 Pulse 82 01/20/19 07:30 Resp 16 01/20/19 07:30 BP 151/68 01/20/19 07:30 Pulse Ox 98 01/20/19 07:30 Intake & Output 01/19/19 01/20/19 01/20/19 18:59 06:59 18:59 Intake Total 1110 1120 Output Total 800 725 Balance 310 395 Weight 45.359 kg Intake: IV 800 Sodium Chloride 0.9% 1, 800 000 ml @ 100 mls/hr IV . Q10H [facility] Rx#:[id number] Intake, IV Titration 400 Amount Sodium Chloride 0.9% 1, 400 000 ml @ 60 mls/hr IV . [id number] [facility] Rx#:[id number] Oral 100 Blood Product 310 620 Rc Cpda-1 Unit 0 310 [id number] Rc Pheresis As-3 Unit 310 [id number] Output: Urine 800 725 Uretheral (Palmer) 800 Other: Voiding Method Indwelling Catheter - Exam Vital signs are stable. Patient is in no acute distress and is alert and oriented 3. Calf is soft and nontender to palpation. Dressing is clean, dry, and intact. There is minimal swelling of the left lower extremity. Patient has full foot and ankle motion without pain or difficulty. Neurovascular status and circulatory status are intact. - Labs CBC & Chem 7: 01/19/19 22:02 01/15/19 15:23 Labs: Abnormal Lab Results - Last 24 Hours (Table) 01/17/19 01/19/19 01/19/19 Range/Units 09:09 09:17 22:02 RBC 1.79 L 2.45 L (3.80-5.40) m/uL Hgb 5.5 L* 7.8 L D (11.4-16.0) gm/dL Hct 17.6 L* 23.2 L (34.0-46.0) % Crossmatch See Detail Assessment and Plan Assessment: Hypertension Glaucoma (1) Fall Current Visit: Yes Status: Acute Code(s): W19.XXXA - UNSPECIFIED FALL, INITIAL ENCOUNTER SNOMED Code(s): 8743355 (2) Hip fracture, left Current Visit: Yes Status: Acute Code(s): S72.002A - FRACTURE OF UNSP PART OF NECK OF LEFT FEMUR, INIT SNOMED Code(s): 379080494 Plan: Continue routine postop care and pain control. Xarelto is being held. Hemoglobin has improved to 7.8. Patient is asymptomatic. Weightbearing as tolerated with a walker and physical therapy. Daily dressing changes. Appreciate input from medicine. Planning on discharge to ECF when cleared medically.
[2019-01-20] MEDS: LISINOPRIL-HCTZ 10-12.5 MG 1 EACH TAB PO SCH (08:45)
[2019-01-20] MEDS: MULTIVITAMINS, THERA 1 EACH TAB PO SCH (08:45)
[2019-01-20] MEDS: BRIMONIDINE TARTRATE 0.2% DROPS 5 ML BTL LEFT EYE SCH ×2 (08:45→21:17)
[2019-01-20] MEDS: PANTOPRAZOLE 40 MG TABLET PO SCH (08:45)
[2019-01-20] MEDS: HYDROcodone/APAP 5-325MG 1 EACH TAB PO PRN (08:49)
[2019-01-20 09:07] LABS: HCT 25.1 % (34.0-46.0); HGB 8.6 gm/dL (11.4-16.0); MCH 32.6 pg (25.0-35.0); MCHC 34.5 g/dL (31.0-37.0); MCV 94.6 fL (80.0-100.0); Mean Platelet Volume 7.8; Platelet Count 215 k/uL (150-450); RBC 2.65 m/uL (3.80-5.40); RDW 14.2 % (11.5-15.5); WBC 9.3 k/uL (3.8-10.6)
[2019-01-20 09:15] LABS: Calcium 8.5 mg/dL (8.4-10.2); Potassium 3.3 mmol/L (3.5-5.1)
[2019-01-20] MEDS ORDERED: Potassium Replacement Protocol 1 EACH MISC MISCELLANE PRN (09:49)
[2019-01-20] MEDS: POTASSIUM CHLORIDE ER 20 MEQ TAB.ER PO SCH ×2 (09:56→11:02)
--- NOTE | 2019-01-20 10:25 | P.PN ---
Subjective Hemoglobin improved with transfusion 7.8 Marizol. Noted to be hypokalemic at 3.3 potassium replacement ordered. Patient remains awake and alert than pain control Objective - Vital Signs Vital signs: Vital Signs Temp 98.1 F 01/20/19 07:30 Pulse 82 01/20/19 07:30 Resp 16 01/20/19 07:30 BP 151/68 01/20/19 07:30 Pulse Ox 98 01/20/19 07:30 Intake & Output 01/19/19 01/20/19 01/20/19 18:59 06:59 18:59 Intake Total 1110 1120 Output Total 800 725 Balance 310 395 Weight 45.359 kg Intake: IV 800 Sodium Chloride 0.9% 1, 800 000 ml @ 100 mls/hr IV . Q10H [facility] Rx#:[id number] Intake, IV Titration 400 Amount Sodium Chloride 0.9% 1, 400 000 ml @ 60 mls/hr IV . [id number] [facility] Rx#:[id number] Oral 100 Blood Product 310 620 Rc Cpda-1 Unit 0 310 [id number] Rc Pheresis As-3 Unit 310 [id number] Output: Urine 800 725 Uretheral (Palmer) 800 Other: Voiding Method Indwelling Catheter Indwelling Catheter - Constitutional General appearance: Present: mild distress - EENT Eyes: Present: PERRLA Ears: bilateral: normal - Neck Neck: Present: normal ROM - Respiratory Respiratory: bilateral: CTA - Cardiovascular Rhythm: regular - Gastrointestinal General gastrointestinal: Present: soft - Integumentary Integumentary Comment(s): Dressing to left hip Integumentary: Present: normal - Neurologic Neurologic: Present: CNII-XII intact - Musculoskeletal Musculoskeletal: Present: generalized weakness - Psychiatric Psychiatric: Present: A&O x's 3 - Labs CBC & Chem 7: 01/20/19 08:38 01/20/19 08:38 Labs: Abnormal Lab Results - Last 24 Hours (Table) 01/17/19 01/19/19 01/20/19 Range/Units 09:09 22:02 08:38 RBC 2.45 L 2.65 L (3.80-5.40) m/uL Hgb 7.8 L D 8.6 L (11.4-16.0) gm/dL Hct 23.2 L 25.1 L (34.0-46.0) % Potassium (3.5-5.1) mmol/L Chloride (98-107) mmol/L BUN (7-17) mg/dL Glucose (74-99) mg/dL Crossmatch See Detail 01/20/19 Range/Units 08:38 RBC (3.80-5.40) m/uL Hgb (11.4-16.0) gm/dL Hct (34.0-46.0) % Potassium 3.3 L (3.5-5.1) mmol/L Chloride 112 H (98-107) mmol/L BUN 29 H (7-17) mg/dL Glucose 135 H (74-99) mg/dL Crossmatch Assessment and Plan Plan: Assessment Comminuted displaced left intertrochanter femur fracture postop open reduction and nailing of intertrochanter fracture Hypertension Glaucoma Anemia postop unexpected posttransfusion Plan Continue to monitor patient Rehab transfer to [facility] when medically stable
[2019-01-20] MEDS: SENNOSIDES-DOCUSATE SODIUM 1 EACH TAB PO SCH (21:17)
[2019-01-20] MEDS: LATANOPROST 0.005% OPHTH DROPS 2.5 ML BTL LEFT EYE SCH (21:17)
[2019-01-21] MEDS: SODIUM CHLORIDE 0.9% 1,000 ML IV SCH ×4 (01:17→14:21)
[2019-01-21] MEDS: HYDROcodone/APAP 5-325MG 1 EACH TAB PO PRN ×2 (05:48→20:06)
[2019-01-21] MEDS: MULTIVITAMINS, THERA 1 EACH TAB PO SCH (08:53)
[2019-01-21] MEDS: LISINOPRIL-HCTZ 10-12.5 MG 1 EACH TAB PO SCH (08:53)
[2019-01-21] MEDS: PANTOPRAZOLE 40 MG TABLET PO SCH (08:53)
[2019-01-21] MEDS: BRIMONIDINE TARTRATE 0.2% DROPS 5 ML BTL LEFT EYE SCH ×2 (08:53→20:07)
[2019-01-21] MEDS: LACTATED RINGERS 1,000 ML IV SCH (08:54)
--- NOTE | 2019-01-21 09:08 | P.PN ---
Subjective Progress Note Date: 01/21/19 This is an 88-year-old female who is status post closed reduction and intramedullary nailing of the left hip. This is postoperative day #5 and patient is seen and evaluated at bedside. Patient states that she has been able to transfer to a chair with physical therapy Patient states that her pain is well controlled and she denies any new complaints today. Patient denies any fever/chills, numbness, weakness, tingling, abdominal pain, shortness of breath or chest pain. Objective - Vital Signs Vital signs: Vital Signs Temp 98.7 F 01/21/19 07:04 Pulse 58 L 01/21/19 07:04 Resp 15 01/21/19 07:04 BP 162/80 01/21/19 07:04 Pulse Ox 96 01/21/19 07:04 Intake & Output 01/20/19 01/21/19 01/21/19 18:59 06:59 18:59 Intake Total 700 120 Output Total 350 300 Balance 350 -180 Intake: Intake, IV Titration 700 120 Amount Sodium Chloride 0.9% 1, 700 000 ml @ 100 mls/hr IV . Q10H [facility] Rx#:[id number] Sodium Chloride 0.9% 1, 120 000 ml @ 60 mls/hr IV . [id number] [facility] Rx#:[id number] Output: Urine 350 300 Other: Voiding Method Indwelling Catheter - Exam Vital signs are stable. Patient is in no acute distress and is alert and oriented 3. Calf is soft and nontender to palpation. Dressing is clean, dry, and intact. There is minimal swelling of the left lower extremity. Patient has full foot and ankle motion without pain or difficulty. Sensation intact. Neurovascular status and circulatory status are intact. - Labs CBC & Chem 7: 01/20/19 08:38 01/20/19 08:38 Labs: Abnormal Lab Results - Last 24 Hours (Table) 01/20/19 01/20/19 Range/Units 08:38 08:38 RBC 2.65 L (3.80-5.40) m/uL Hgb 8.6 L (11.4-16.0) gm/dL Hct 25.1 L (34.0-46.0) % Potassium 3.3 L (3.5-5.1) mmol/L Chloride 112 H (98-107) mmol/L BUN 29 H (7-17) mg/dL Glucose 135 H (74-99) mg/dL Assessment and Plan Assessment: Hypertension Glaucoma (1) Fall Current Visit: Yes Status: Acute Code(s): W19.XXXA - UNSPECIFIED FALL, INITIAL ENCOUNTER SNOMED Code(s): 4603265 (2) Hip fracture, left Current Visit: Yes Status: Acute Code(s): S72.002A - FRACTURE OF UNSP PART OF NECK OF LEFT FEMUR, INIT SNOMED Code(s): 338693237 Plan: Continue routine postop care and pain control. Anticoagulation per internal medicine. Hemoglobin has improved. Patient is asymptomatic. Weightbearing as tolerated with a walker and physical therapy. Daily dressing changes. Appreciate input from medicine. Planning on discharge to ECF when cleared medically.
--- NOTE | 2019-01-21 09:36 | CDI ---
Documentation Clarification Form Date: 01/19/2019 1:32:00 PM From: Yajaira HillsNoelYUNIOR vieira, CCDS Admit Date: 01/15/2019 4:27:00 PM Patient Name: Edith Brady Visit Number: [id number] Discharge Date: ATTENTION: The Clinical Documentation Specialists (CDI) and [facility] Coding Staff appreciate your assistance in clarifying documentation. Please respond to the clarification below the line at the bottom and electronically sign. The CDI & [facility] Coding staff will review the response and follow-up if needed. Please note: Queries are made part of the Legal Health Record. If you have any questions, please contact the author of this message via ITS. Dr. Virgilio Wynn: A diagnosis of anemia lacks specificity to accurately reflect your patients severity of condition and clarification is needed. Per the 01/19 medical management progress note: "Postop anemia 5.7 not expected." Per the 01/19 medical management progress note: "Anemia postop unexpected posttransfusion". History/Risk Factors: Hypertension, glaucoma. Clinical indicators: Presented after a fall with left IT fracture status post repair. Hemoglobin: 11.0*, 10.4* - 5.7 - 5.5 Hematocrit: 34.3 - 32.0* - 17.8 - 17.6 Treatment: Closed reduction & intramedullary nailing of the 4 pat IT fracture of the left hip. IV Ms, IV Zofran, IV fl 100, IV fluid bolus x1, IV Ativan, IV Toradol. Blood transfusion on 01/19 1 unit PRBCs. In order to capture the severity of condition, please clarify the acuity of anemia and etiology if known: Acute blood loss anemia Acute on chronic blood loss anemia Chronic blood loss anemia Drug induced anemia Unable to determine Other, please specify (Last Revision: November 2016) Acute blood loss anemia MTDD
[2019-01-21 10:26] LABS: HCT 25.7 % (34.0-46.0); HGB 8.4 gm/dL (11.4-16.0); MCHC 32.7 g/dL (31.0-37.0); MCV 94.9 fL (80.0-100.0); Mean Platelet Volume 7.8; Platelet Count 233 k/uL (150-450); RBC 2.71 m/uL (3.80-5.40); RDW 14.2 % (11.5-15.5); WBC 9.9 k/uL (3.8-10.6)
[2019-01-21 10:40] LABS: Calcium 8.5 mg/dL (8.4-10.2); Magnesium 1.7 mg/dL (1.6-2.3); Potassium 3.9 mmol/L (3.5-5.1)
--- NOTE | 2019-01-21 13:02 | P.PN ---
Subjective Patient developed a tachycardia rhythm rate 152 EKG ordered and cardiology consultation. Hemoglobin maintaining 8.4. Patient awake and alert. Patient may be restarted on Xarelto orthopedics signed off case will assume care Objective - Vital Signs Vital signs: Vital Signs Temp 98.7 F 01/21/19 07:04 Pulse 58 L 01/21/19 07:04 Resp 15 01/21/19 07:04 BP 162/80 01/21/19 07:04 Pulse Ox 96 01/21/19 07:04 Intake & Output 01/20/19 01/21/19 01/21/19 18:59 06:59 18:59 Intake Total 700 120 180 Output Total 350 300 Balance 350 -180 180 Intake: Intake, IV Titration 700 120 Amount Sodium Chloride 0.9% 1, 700 000 ml @ 100 mls/hr IV . Q10H [facility] Rx#:[id number] Sodium Chloride 0.9% 1, 120 000 ml @ 60 mls/hr IV . [id number] [facility] Rx#:[id number] Oral 180 Output: Urine 350 300 Other: Voiding Method Indwelling Catheter Indwelling Catheter - Constitutional General appearance: Present: mild distress - EENT Eyes: Present: PERRLA Ears: bilateral: normal - Neck Neck: Present: normal ROM - Respiratory Respiratory: bilateral: CTA - Cardiovascular Rhythm: irregularly irregular Abnormal Heart Sounds: Present: systolic murmur - Gastrointestinal General gastrointestinal: Present: soft - Integumentary Integumentary: Present: normal - Neurologic Neurologic: Present: CNII-XII intact - Musculoskeletal Musculoskeletal: Present: generalized weakness - Psychiatric Psychiatric: Present: A&O x's 3, appropriate affect, intact judgment & insight - Labs CBC & Chem 7: 01/21/19 10:10 01/21/19 10:10 Labs: Abnormal Lab Results - Last 24 Hours (Table) 01/21/19 01/21/19 Range/Units 10:10 10:10 RBC 2.71 L (3.80-5.40) m/uL Hgb 8.4 L (11.4-16.0) gm/dL Hct 25.7 L (34.0-46.0) % Chloride 112 H (98-107) mmol/L BUN 26 H (7-17) mg/dL Glucose 123 H (74-99) mg/dL Assessment and Plan Plan: Assessment Comminuted displaced left intertrochanteric femur fracture postop open reduction of an urgent care fraction ( Postoperative anemia 5.7 acute blood loss unexpected Hypertension glaucoma Cardiac arrhythmia hypokalemia corrected Plan Cardiology consultation regarding arrhythmia Hopeful discharge soon to [facility] rehab
--- NOTE | 2019-01-21 14:04 | P.CRDCN ---
History of Present Illness History of present illness: HISTORY OF PRESENTING ILLNESS This is a pleasant 88-year-old female past medical history significant for glaucoma and hypertension. She has somewhat of a poor historian. She stat es overall she is quite healthy and doesn't recall any significant cardiac history. She does not follow with a film reader. We have been asked to see in consultation for irregular heartbeat. She initially presented to the hospital on January 15 after suffering a trip and fall. She was found to have a left intertrochanteric hip fracture. On January 17 she underwent a closed reduction and IM nailing of the left hip. Her hospital stay was complicated by profound anemia with a hemoglobin of 5.7 on postoperative day #2. She was transfused 2 units of pack red blood cells. Repeat hemoglobin today is 8.6 with platelets of 215. Yesterday during routine vital signs at 3:00 her heart rate was noted to be 152 with a blood pressure 109/63. EKG was performed revealing multifocal atrial tachycardia with a heart rate of 145. The patient does not recall this episode as being anything significant. She denies having palpitations, chest pain, shortness of breath or dizziness. Chest x-ray on admission was negative for an acute cardiopulmonary process. Laboratory data reviewed, WBC 9.3, hemo globin 8.6, platelets 215, sodium 143, potassium 3.3, creatinine 0.95. Prior to surgery she had 2 EKG's performed both sinus with no ST or T-wave changes. Current daily cardiac medications include zestoretic 10/12.5 mg daily. There is no old echo or stress test to review. She is seen and examined sitting up in the chair finishing her breakfast in no acute distress. No telemetry tracings to review. The patient is not currently on the monitor. REVIEW OF SYSTEMS At the time of my exam: CONSTITUTIONAL: Denies fever or chills. CARDIOVASCULAR: Denies chest pain, shortness of breath, orthopnea, PND or palpitations. RESPIRATORY: Denies cough. GASTROINTESTINAL: Denies abdominal pain, diarrhea, constipation, nausea or vomiting. MUSCULOSKELETAL: Denies myalgias. NEUROLOGIC: Denies numbness, tingling or weakness. ENDOCRINE: Denies fatigue, weight change, polydipsia or polyurina. GENITOURINARY: Denies burning, hematuria or urgency with micturation. HEMATOLOGIC: Denies history of anemia or bleeding. PHYSICAL EXAMINATION Blood pressure 162/80 heart rate 58 afebrile and maintaining oxygen saturation on room air. CONSTITUTIONAL: No apparent distress. HEENT: Head is normocephalic. Pupils are equal, round. Sclerae anicteric. Mucous membranes of the mouth are moist. No JVD. No carotid bruit. CHEST EXAMINATION: Lungs are clear to auscultation. No chest wall tenderness is noted on palpation or with deep breathing. HEART EXAMINATION: Regular rate and rhythm. S1, S2 heard. No murmurs, gallops or rub. ABDOMEN: Soft, nontender. Positive bowel sounds. EXTREMITIES: 2+ peripheral pulses, no lower extremity edema and no calf tenderness. NEUROLOGIC EXAMINATION: Patient is awake, alert and oriented x3. ASSESSMENT Multifocal atrial tachycardia Post operative day #3 left intertrochanteric IM nailing Fall causing left hip fracture, no syncope or LOC Hypertension Anemia requiring blood transfusion PLAN Initiate on calcium channel grace which works quite well to control MAT. Obtain 2D echocardiogram and doppler study to assess cardiac structure and function. Ongoing telemetry monitoring. Thank you kindly for this consultation. Nurse Practitioner note has been reviewed, I agree with a documented findings and plan of care. Patient was seen and examined. Past Medical History Past Medical History: Eye Disorder, Hypertension Additional Past Medical History / Comment(s): glaucoma History of Any Multi-Drug Resistant Organisms: None Reported Past Surgical History: No Surgical Hx Reported Additional Past Surgical History / Comment(s): unsure of surgical hx Past Anesthesia/Blood Transfusion Reactions: Unable to Obtain Past Psychological History: No Psychological Hx Reported Smoking Status: Never smoker Past Alcohol Use History: None Reported Past Drug Use History: None Reported Medications and Allergies Home Medications Medication Instructions Recorded Confirmed Type Brimonidine Tartrate [Alphagan P 1 drops LEFT EYE BID 01/15/19 01/15/19 History 0.2% Ophth Soln] Latanoprost/Pf [Latanoprost 0.005% 1 drop LEFT EYE HS 01/15/19 01/15/19 History Eye Drop] Lisinopril-Hctz 10-12.5 mg 1 tab PO DAILY 01/15/19 01/15/19 History [Zestoretic 10-12.5] Multivitamins, Thera [Multivitamin 1 tab PO DAILY 01/15/19 01/15/19 History (formulary)] Prevident 5,000 Boost Plus 1 applic PO DAILY 01/15/19 01/15/19 History Acetaminophen Tab [Tylenol Tab] 1 - 2 tab PO Q8H PRN #90 tablet 01/18/19 Rx HYDROcodone/APAP 5-325MG [[place] 1 tab PO Q6HR PRN #30 tab 01/18/19 Rx 5-325] Sennosides [Senokot] 2 tab PO DAILY PRN #60 tablet 01/18/19 Rx Allergies Allergy/AdvReac Type Severity Reaction Status Date / Time No Known Allergies Allergy Verified 01/15/19 17:45 Physical Exam Vitals: Vital Signs Temp Pulse Resp BP Pulse Ox 01/21/19 07:04 98.7 F 58 L 15 162/80 96 01/21/19 00:06 97.6 F 91 15 149/81 95 01/20/19 19:00 99.8 F H 90 14 148/80 96 01/20/19 15:04 98 F 152 H 16 109/63 95 Intake and Output 01/20/19 01/21/19 01/21/19 22:59 06:59 14:59 Intake Total 120 180 Output Total 350 300 Balance -230 -300 180 Intake: Intake, IV Titration 120 Amount Sodium Chloride 0.9% 1, 120 000 ml @ 60 mls/hr IV . [id number] [facility] Rx#:[id number] Oral 180 Output: Urine 350 300 Other: Voiding Method Indwelling Catheter Results 01/21/19 10:10 01/21/19 10:10 Current Medications Generic Name Dose Route Start Last Admin Trade Name Freq PRN Reason Stop Dose Admin Acetaminophen 650 mg 01/17/19 11:27 Tylenol Tab PO Q8H PRN Fever and/ or Pain Hydrocodone Bitart/Acetaminophen 1 each 01/17/19 11:19 01/20/19 08:49 [place] 5-325 PO 1 each Q6HR PRN Administration Pain Scale 1 to 5 Hydrocodone Bitart/Acetaminophen 2 each 01/17/19 11:19 01/21/19 05:48 [place] 5-325 PO 2 each Q6HR PRN Administration Pain Scale 6 to 10 Brimonidine Tartrate 1 drops 01/15/19 21:00 01/21/19 08:53 Alphagan P 0.2% Ophth Soln LEFT EYE 1 drops BID [facility] Administration Lisinopril/HCTZ 1 each 01/16/19 09:00 01/21/19 08:53 Zestoretic 10-12.5 PO 1 each DAILY [facility] Administration Hydromorphone HCl 0.125 mg 01/17/19 11:19 Dilaudid IVP Q3HR PRN Pain Scale 1 to 3 Hydromorphone HCl 0.25 mg 01/17/19 11:19 Dilaudid IVP Q3HR PRN Pain Scale 4 to 6 Hydromorphone HCl 0.5 mg 01/17/19 11:19 01/17/19 20:03 Dilaudid IVP 0.5 mg Q3HR PRN Administration Pain Scale 7 to 10 Sodium Chloride 1,000 mls @ 100 mls/hr 01/15/19 17:15 01/21/19 03:25 Saline 0.9% IV Not Given .Q10H [facility] Lactated Ringer's 1,000 mls @ 20 mls/hr 01/16/19 11:53 01/21/19 08:54 Lactated Ringers IV Not Given .Q24H [facility] Sodium Chloride 1,000 mls @ 60 mls/hr 01/17/19 11:30 01/21/19 03:24 Saline 0.9% IV 60 mls/hr .[id number] [facility] Administration Latanoprost 1 drops 01/15/19 21:00 01/20/19 21:17 Xalatan 0.005% LEFT EYE 1 drops HS [facility] Administration Lidocaine HCl 0.1 ml 01/16/19 11:53 .Xylocaine 1% Inj (10mg/Ml) For Iv Start INTRADERMA PER PROTOCOL PRN IV Start Lorazepam 0.5 mg 01/15/19 17:06 Ativan IV Q6HR PRN Anxiety Magnesium Hydroxide 2,400 mg 01/17/19 11:19 Milk Of Magnesia PO DAILY PRN Constipation Miscellaneous Information 1 each 01/20/19 09:49 Potassium Per Protocol MISCELLANE DAILY PRN Per Protocol Protocol Multivitamins 1 each 01/16/19 09:00 01/21/19 08:53 Theragran PO 1 each DAILY [facility] Administration Naloxone HCl 0.2 mg 01/15/19 17:06 Narcan IV Q2M PRN Opioid Reversal Naloxone HCl 0.2 mg 01/17/19 11:19 Narcan IV Q2M PRN Opioid Reversal Ondansetron HCl 4 mg 01/15/19 17:06 Zofran IVP Q8HR PRN Nausea And Vomiting Pantoprazole Sodium 40 mg 01/19/19 07:30 01/21/19 08:53 Protonix PO 40 mg [id number] [facility] Administration Senna/Docusate Sodium 2 each 01/17/19 21:00 01/20/19 21:17 Senokot-S PO 2 each HS MALI Administration Intake and Output 01/20/19 01/21/19 01/21/19 22:59 06:59 14:59 Intake Total 120 180 Output Total 350 300 Balance -230 -300 180 Intake: Intake, IV Titration 120 Amount Sodium Chloride 0.9% 1, 120 000 ml @ 60 mls/hr IV . [id number] [facility] Rx#:[id number] Oral 180 Output: Urine 350 300 Other: Voiding Method Indwelling Catheter 01/20/19 08:38 01/20/19 08:38
[2019-01-21] MEDS: DILTIAZEM CD 120 MG CAP.ER.24H PO SCH (14:21)
[2019-01-21] MEDS: SENNOSIDES-DOCUSATE SODIUM 1 EACH TAB PO SCH (20:06)
[2019-01-21] MEDS: LATANOPROST 0.005% OPHTH DROPS 2.5 ML BTL LEFT EYE SCH (20:06)
[2019-01-22] MEDS: SODIUM CHLORIDE 0.9% 1,000 ML IV SCH ×5 (03:23→19:45)
[2019-01-22] MEDS: HYDROcodone/APAP 5-325MG 1 EACH TAB PO PRN ×3 (04:38→16:59)
[2019-01-22] MEDS: PANTOPRAZOLE 40 MG TABLET PO SCH (08:02)
[2019-01-22] MEDS: MULTIVITAMINS, THERA 1 EACH TAB PO SCH (08:02)
[2019-01-22] MEDS: DILTIAZEM CD 120 MG CAP.ER.24H PO SCH (08:03)
[2019-01-22] MEDS: LISINOPRIL-HCTZ 10-12.5 MG 1 EACH TAB PO SCH (08:03)
[2019-01-22] MEDS: BRIMONIDINE TARTRATE 0.2% DROPS 5 ML BTL LEFT EYE SCH ×2 (08:04→21:51)
--- NOTE | 2019-01-22 08:20 | P.PN ---
Subjective Progress Note Date: 01/22/19 This is an 88-year-old female who is status post closed reduction and intramedullary nailing of the left hip. This is postoperative day #6 and patient is seen and evaluated at bedside. Patient states that her pain is well controlled and she denies any new complaints today. Patient denies any fever/chills, numbness, weakness, tingling, abdominal pain, shortness of breath or chest pain. Objective - Vital Signs Vital signs: Vital Signs Temp 97.5 F L 01/22/19 07:33 Pulse 69 01/22/19 07:33 Resp 16 01/22/19 07:33 BP 132/63 01/22/19 07:33 Pulse Ox 91 L 01/22/19 07:33 Intake & Output 01/21/19 01/22/19 01/22/19 18:59 06:59 18:59 Intake Total 1340 940 Output Total 300 Balance 1340 640 Intake: IV 350 Sodium Chloride 0.9% 1, 350 000 ml @ 100 mls/hr IV . Q10H [facility] Rx#:[id number] Intake, IV Titration 800 Amount Sodium Chloride 0.9% 1, 800 000 ml @ 100 mls/hr IV . Q10H [facility] Rx#:[id number] Oral 540 590 Output: Urine 300 Other: Voiding Method Indwelling Catheter # Voids 1 - Exam Vital signs are stable. Patient is in no acute distress and is alert and oriented 3. Calf is soft and nontender to palpation. Dressing is clean, dry, and intact. There is minimal swelling of the left lower extremity. Patient has full foot and ankle motion without pain or difficulty. Sensation intact. Neurovascular status and circulatory status are intact. - Labs CBC & Chem 7: 01/21/19 10:10 01/21/19 10:10 Labs: Abnormal Lab Results - Last 24 Hours (Table) 01/21/19 01/21/19 Range/Units 10:10 10:10 RBC 2.71 L (3.80-5.40) m/uL Hgb 8.4 L (11.4-16.0) gm/dL Hct 25.7 L (34.0-46.0) % Chloride 112 H (98-107) mmol/L BUN 26 H (7-17) mg/dL Glucose 123 H (74-99) mg/dL Assessment and Plan Assessment: Hypertension Glaucoma (1) Fall Current Visit: Yes Status: Acute Code(s): W19.XXXA - UNSPECIFIED FALL, INITIAL ENCOUNTER SNOMED Code(s): 7526491 (2) Hip fracture, left Current Visit: Yes Status: Acute Code(s): S72.002A - FRACTURE OF UNSP PART OF NECK OF LEFT FEMUR, INIT SNOMED Code(s): 255990687 Plan: Continue routine postop care and pain control. Anticoagulation per internal medicine. Hemoglobin has improved. Patient is asymptomatic. Weightbearing as tolerated with a walker and physical therapy. Daily dressing changes. Appreciate input from internal medicine and cardiology. Planning on discharge to [facility]CF when cleared medically.
--- NOTE | 2019-01-22 10:46 | P.PN ---
Subjective HISTORY OF PRESENTING ILLNESS This is a pleasant 88-year-old female past medical history significant for glaucoma and hypertension. She has somewhat of a poor historian. She states overall she is quite healthy and doesn't recall any significant cardiac history. She does not follow with a document imaging manager. She is seen and examined sitting up in bed eating breakfast. She is complaining of some discomfort in the left hip and down her leg. She denies chest pain, shortness of breath, dizziness or palpitation. Blood pressure 132/63 heart rate 69 afebrile and maintaining oxygen saturation on room air. PHYSICAL EXAMINATION CONSTITUTIONAL: No apparent distress. HEENT: Head is normocephalic. Pupils are equal, round. Sclerae anicteric. Mucous membranes of the mouth are moist. No JVD. No carotid bruit. CHEST EXAMINATION: Lungs are clear to auscultation. No chest wall tenderness is noted on palpation or with deep breathing. HEART EXAMINATION: Regular rate and rhythm. S1, S2 heard. No murmurs, gallops or rub. EXTREMITIES: 2+ peripheral pulses, no lower extremity edema and no calf tenderness. ASSESSMENT Multifocal atrial tachycardia Post operative day #3 left intertrochanteric IM nailing Fall causing left hip fracture, no syncope or LOC Hypertension Anemia requiring blood transfusion PLAN Echocardiogram has been obtained and will be reviewed. Evidence of possibly abnormality on the mitral valve. Will require ALCIRA as an outpatient. Telemetry tracings reviewed and unremarkable. No further MAT. Nurse Practitioner note has been reviewed, I agree with a documented findings and plan of care. Patient was seen and examined. Objective - Vital Signs Vital signs: Vital Signs Temp 97.5 F L 01/22/19 07:33 Pulse 69 01/22/19 07:33 Resp 16 01/22/19 07:33 BP 132/63 01/22/19 07:33 Pulse Ox 91 L 01/22/19 07:33 Intake & Output 01/21/19 01/22/19 01/22/19 18:59 06:59 18:59 Intake Total 1340 940 Output Total 300 Balance 1340 640 Intake: IV 350 Sodium Chloride 0.9% 1, 350 000 ml @ 100 mls/hr IV . Q10H [facility] Rx#:[id number] Intake, IV Titration 800 Amount Sodium Chloride 0.9% 1, 800 000 ml @ 100 mls/hr IV . Q10H [facility] Rx#:[id number] Oral 540 590 Output: Urine 300 Other: Voiding Method Indwelling Catheter # Voids 1 - Labs CBC & Chem 7: 01/21/19 10:10 01/21/19 10:10 Labs: Abnormal Lab Results - Last 24 Hours (Table) 01/21/19 Range/Units 10:10 Chloride 112 H (98-107) mmol/L BUN 26 H (7-17) mg/dL Glucose 123 H (74-99) mg/dL
[2019-01-22] MEDS: LACTATED RINGERS 1,000 ML IV SCH (12:09)
--- NOTE | 2019-01-22 13:33 | ECHOF ---
Referral Reason:tachycardia, MEASUREMENTS -------- HEIGHT: 165.1 cm WEIGHT: 45.4 kg BP: RVIDd: 3.1 cm (< 3.3) IVSd: 1.0 cm (0.6 - 1.1) LVIDd: 3.6 cm (3.9 - 5.3) LVPWd: 0.9 cm (0.6 - 1.1) IVSs: 1.2 cm LVIDs: 2.7 cm LVPWs: 1.4 cm LAESV Index (A-L): 40.51 ml/m Ao Diam: 2.6 cm (2.0 - 3.7) AV Cusp: 1.2 cm (1.5 - 2.6) LA Diam: 2.9 cm (2.7 - 3.8) MV EXCURSION: 15.358 mm (> 18.000) MV EF SLOPE: 59 mm/s (70 - 150) EPSS: 0.2 cm MV E Zach: 0.53 m/s MV DecT: 302 ms MV A Zach: 0.76 m/s MV E/A Ratio: 0.71 AR PHT: 385 ms RAP: 15.00 mmHg RVSP: 62.12 mmHg FINDINGS -------- Undetermined rhythm. This was a technically adequate study. The left ventricular size is normal. Left ventricular wall thickness is normal. Overall left vent ricular systolic function is low-normal with, an EF between 50 - 55 %. The right ventricle is normal in size. The left atrium is markedly dilated. LA is severely dilated >40 ml/m2 The right atrial size is normal. There is mild aortic valve sclerosis. There is mild aortic regurgitation. Severe mitral regurgitation is present. An echodensity attached to the posterior mitral leaflet. Moderate to severe tricuspid regurgitation present. There is moderate to severe pulmonary hypertens ion. The right ventricular systolic pressure, as measured by Doppler, is 62.12mmHg. There is no pulmonic regurgitation present. The aortic root size is normal. There is no pericardial effusion. Small Pleural Effusion. CONCLUSIONS -------- 1. Undetermined rhythm. 2. This was a technically adequate study. 3. The left ventricular size is normal. 4. Left ventricular wall thickness is normal. 5. Overall left ventricular systolic function is low-normal with, an EF between 50 - 55 %. 6. The right ventricle is normal in size. 7. The left atrium is markedly dilated. 8. LA is severely dilated >40 ml/m2 9. The right atrial size is normal. 10. There is mild aortic valve sclerosis. 11. There is mild aortic regurgitation. 12. Severe mitral regurgitation is present. 13. An echodensity attached to the posterior mitral leaflet. 14. Moderate to severe tricuspid regurgitation present. 15. There is moderate to severe pulmonary hypertension. 16. The right ventricular systolic pressure, as measured by Doppler, is 62.12mmHg. 17. There is no pulmonic regurgitation present. 18. The aortic root size is normal. 19. There is no pericardial effusion. 20. Small Pleural Effusion. SUPERVISOR RESIDENTIAL: Andreia Cabral RDCS
--- NOTE | 2019-01-22 15:27 | P.DS ---
Providers Date of admission: 01/15/19 16:27 Expected date of discharge: 01/22/19 Attending physician: Virgilio Wynn Consults: 01/15/19 17:06 Consult Physician Stat Consulting Provider: Nannette Buckner Consult Reason/Comments: Med clearance, l hip fracture Do you want consulting provider notified?: Yes 01/20/19 14:51 Consult Physician Urgent Consulting Provider: [facility] Consult Reason/Comments: Irregular rhythm Do you want consulting provider notified?: Yes 01/21/19 12:44 Consult Physician Routine Consulting Provider: Griffin Cavazos Consult Reason/Comments: l hip fx Do you want consulting provider notified?: Already Contacted Primary care physician: Virgilio Wynn Hospital Course: Final diagnosis Comminuted displaced left intertrochanteric femur fracture Postoperative anemia Hypertension glaucoma Cardiac arrhythmia hypokalemia Discharge disposition Patient is being discharged in a stable condition with guarded prognosis to [facility] and will continue with PT/OT therapy. Patient Will follow-up with primary care provider, cardiology, and orthopedics upon discharge. Total time taken is 35 minutes. History of present illness This is an 88 old female who was recently admitted for a comminuted displaced left intertrochanteric, left proximal femur fracture and was being closely monitored. During hospitalization patient underwent a closed reduction and intramedullary nailing of intertrochanteric fracture of the left hip. During hospitalization patient experienced an irregular heartbeat and cardiology was consulted. Patient was started on a calcium channel grace and will continue at this time in the outpatient setting. 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 Patient will be following up with cardiology in the outpatient setting as discussed and scheduled. Patient may need a ALCIRA in the outpatient setting. Currently patient's condition is stable and will be discharged today to [facility] for continued PT/OT therapy. Prognosis is guarded. On exam vital signs are stable. Temp is 97.5F, pulse is 69, respirations are 16, blood pressure is 132/63, oxygen saturation is 91% on room air. Cardio S1, S2 are muffled. Respiratory system shows diminished breath sounds at the bases otherwise clear to auscultation. Abdomen is soft and non-tender. Nervous system shows mild diffuse weakness. Please refer to medication reconciliation sheet for a list of medications. Patient Condition at Discharge: Stable Plan - Discharge Summary Discharge Rx Participant: No New Discharge Prescriptions: New HYDROcodone/APAP 5-325MG [[place] 5-325] 1 tab PO Q6HR PRN #30 tab PRN Reason: Pain Sennosides [Senokot] 2 tab PO DAILY PRN #60 tablet PRN Reason: Constipation Acetaminophen Tab [Tylenol Tab] 1 - 2 tab PO Q8H PRN #90 tablet PRN Reason: Pain Diltiazem Cd [Cardizem CD] 120 mg PO DAILY #30 cap.er.24h Pantoprazole [Protonix] 40 mg PO AC-BRKFST #30 tablet.dr Gill-Docusate Sodium [Senokot-S] 2 each PO HS #30 tab Continue Multivitamins, Thera [Multivitamin (formulary)] 1 tab PO DAILY Latanoprost/Pf [Latanoprost 0.005% Eye Drop] 1 drop LEFT EYE HS Brimonidine Tartrate [Alphagan P 0.2% Ophth Soln] 1 drops LEFT EYE BID Lisinopril-Hctz 10-12.5 mg [Zestoretic 10-12.5] 1 tab PO DAILY Prevident 5,000 Boost Plus 1 applic PO DAILY Discharge Medication List Brimonidine Tartrate [Alphagan P 0.2% Ophth Soln] 1 drops LEFT EYE BID 01/15/19 [History] Latanoprost/Pf [Latanoprost 0.005% Eye Drop] 1 drop LEFT EYE HS 01/15/19 [History] Lisinopril-Hctz 10-12.5 mg [Zestoretic 10-12.5] 1 tab PO DAILY 01/15/19 [History] Multivitamins, Thera [Multivitamin (formulary)] 1 tab PO DAILY 01/15/19 [History] Prevident 5,000 Boost Plus 1 applic PO DAILY 01/15/19 [History] Acetaminophen Tab [Tylenol Tab] 1 - 2 tab PO Q8H PRN #90 tablet 01/18/19 [Rx] HYDROcodone/APAP 5-325MG [[place] 5-325] 1 tab PO Q6HR PRN #30 tab 01/18/19 [Rx] Sennosides [Senokot] 2 tab PO DAILY PRN #60 tablet 01/18/19 [Rx] Diltiazem Cd [Cardizem CD] 120 mg PO DAILY #30 cap.er.24h 01/22/19 [Rx] Pantoprazole [Protonix] 40 mg PO AC-BRKFST #30 tablet.dr 01/22/19 [Rx] Sennosides-Docusate Sodium [Senokot-S] 2 each PO HS #30 tab 01/22/19 [Rx] Follow up Appointment(s)/Referral(s): Virgilio Wynn MD [Primary Care Provider] - 1-2 days Prateek Alvarado MD [STAFF PHYSICIAN] - 03/15/19 10:00 am Cadyjeremy Jha, [NON-STAFF] - As Needed Griffin Cavazos DO [Doctor of Osteopathic Medicine] - 01/29/19 10:20 am Activity/Diet/Wound Care/Special Instructions: Weightbearing as tolerated with walker. Daily dressing changes. Truchas to be removed 10-14 days postoperatively. May shower after 48-72 hours if no drainage from the incision site. Recommend use of compression stockings daily for at least 2 weeks during the day to help prevent swelling and blood clots. May remove at night before sleeping. Please follow[facility]up with [facility] 2 weeks and call with any questions or concerns, . Anticoagulation per internal medicine recommendations. Discharge Disposition: TRANSFER TO SNF/ECF
[2019-01-22] MEDS: SENNOSIDES-DOCUSATE SODIUM 1 EACH TAB PO SCH (21:51)
[2019-01-22] MEDS: LATANOPROST 0.005% OPHTH DROPS 2.5 ML BTL LEFT EYE SCH (21:51)
[2019-01-23] MEDS ORDERED: DILTIAZEM 125 MG in SODIUM CHLORIDE 0.9% 100 ML IV SCH ×2
[2019-01-23] MEDS: HYDROcodone/APAP 5-325MG 1 EACH TAB PO PRN ×3 (09:45→19:33)
[2019-01-23] MEDS: MULTIVITAMINS, THERA 1 EACH TAB PO SCH (09:48)
[2019-01-23] MEDS: DILTIAZEM CD 120 MG CAP.ER.24H PO SCH (09:48)
[2019-01-23] MEDS: LISINOPRIL-HCTZ 10-12.5 MG 1 EACH TAB PO SCH (09:48)
[2019-01-23] MEDS: SODIUM CHLORIDE 0.9% 1,000 ML IV SCH ×4 (09:50→19:34)
[2019-01-23] MEDS: PANTOPRAZOLE 40 MG TABLET PO SCH (09:52)
--- NOTE | 2019-01-23 12:18 | P.PN ---
Subjective Progress Note Date: 01/23/19 this is a pleasant 88-year-old female with past medical history significant for hypertension, glaucoma, underwent left intertrochanteric IM nailing, cardiology consultation was initially requested for arrhythmia. Upon review of the EKGs and rhythm strips, it does appear that the patient has paro xysmal atrial fibrillation, on review of prior EKG from a recent admission, she was noted to have atrial flutter at that time as well. This morning she is in a normal sinus rhythm but did have episodes of atrial fibrillation through the night last night. We will discontinue her IV Cardizem this morning, discontinue the Cardizem by mouth and start the patient on oral beta blockers today. Overall the patient feels well she sitting up in her chair at bedside, hemodynamically stable this morning. Objective - Vital Signs Vital signs: Vital Signs Temp 98.0 F 01/23/19 08:00 Pulse 130 H 01/23/19 08:00 Resp 16 01/23/19 08:00 BP 148/78 01/23/19 08:00 Pulse Ox 95 01/23/19 08:00 Intake & Output 01/22/19 01/23/19 01/23/19 18:59 06:59 18:59 Intake Total 650 20 180 Balance 650 20 180 Intake: Oral 650 20 180 Other: Voiding Method Toilet # Voids 2 0 - Exam PHYSICAL EXAMINATION: GENERAL:88-year-old female in no acute distress at the time of my examination HEENT: Head is atraumatic, normocephalic. Pupils equal, round. Sclera anicteric. Conjunctiva are clear. Mucous membranes of the mouth are moist. Neck is supple. There is no elevated jugular venous pressure.no carotid bruit is heard. HEART EXAMINATION: heart S1 S2 1 systolic murmur is heard in the mitral valve area.] CHEST EXAMINATION:[ Lungs are clear to auscultation and precussion. No chest wall tenderness is noted on palpation or with deep breathing.] ABDOMEN: [ Soft, nontender. Bowel sounds are heard. No organomegaly noted]. EXTREMITIES:[ 2+ peripheral pulses with no evidence of peripheral edema and no calf tenderness noted]. NEUROLOGIC [patient is awake, alert and oriented 3 . - Labs CBC & Chem 7: 01/21/19 10:10 01/21/19 10:10 Assessment and Plan Plan: ASSESSMENT and plan #1 paroxysmal atrial fibrillation #2 S/ p left intertrochanteric IM nailing #3Fall causing left hip fracture, no syncope or LOC #4Hypertension #5Anemia requiring blood transfusion Plan We will discontinue the IV Cardizem, discontinue the oral Cardizem, start the patient on Lopressor 25 mg by mouth every 8 hourly. I also had a lengthy discussion with the patient regarding the importance of being on anticoagulation for stroke prevention, we will start the patient on Eliquis 2-1/2 mg one tablet by mouth twice a day today. Replace magnesium. Monitor for another 24 hours. DNP note has been reviewed, I agree with a documented findings and plan of care. Patient was seen and examined.
[2019-01-23] MEDS: BRIMONIDINE TARTRATE 0.2% DROPS 5 ML BTL LEFT EYE SCH ×2 (12:19→20:17)
[2019-01-23] MEDS: LACTATED RINGERS 1,000 ML IV SCH (14:14)
[2019-01-23] MEDS: MAGNESIUM SULFATE-D5W PMX 1 GM in DEXTROSE/WATER 1 100ML.BAG IVPB SCH ×2 (14:59→15:00)
[2019-01-23] MEDS: APIXABAN 2.5 MG TABLET PO SCH ×2 (14:59→20:17)
[2019-01-23] MEDS: METOPROLOL TARTRATE 25 MG TAB PO SCH ×3 (14:59→20:17)
--- NOTE | 2019-01-23 15:40 | P.PN ---
Subjective Progress Note Date: 01/23/19 Principal diagnosis: hip fracture; status post surgery; POD #6 Atrial fibrillation 88-year-old female with past medical history significant for hypertension, glaucoma, underwent left intertrochanteric IM nailing, cardiology consultation was initially requested for arrhythmia. Upon review of the EKGs and rhythm strips, it does appear that the patient has paroxysmal atrial fibrillation, on review of prior EKG from a recent admission, she was noted to have atrial flutter at that time as well. This morning she is in a normal sinus rhythm but did have episodes of atrial fibrillation through the night last night. We will discontinue her IV Cardizem this morning, discontinue the Cardizem by mouth and start the patient on oral beta blockers today. Overall the patient feels well she sitting up in her chair at bedside, hemodynamically stable this morning. patient is status post hip surgery; POD #6; patient is to be transferred to residential facility once stable from cardiology standpoint Objective - Vital Signs Vital signs: Vital Signs Temp 97.8 F 01/23/19 12:00 Pulse 80 01/23/19 12:00 Resp 16 01/23/19 12:00 BP 136/63 01/23/19 12:00 Pulse Ox 97 01/23/19 12:00 Intake & Output 01/22/19 01/23/19 01/23/19 18:59 06:59 18:59 Intake Total 650 20 840 Balance 650 20 840 Intake: Intake, IV Titration 480 Amount Sodium Chloride 0.9% 1, 480 000 ml @ 60 mls/hr IV . [id number] [facility] Rx#:[id number] Oral 650 20 360 Other: Voiding Method Toilet Toilet # Voids 2 0 - Exam PHYSICAL EXAMINATION: GENERAL: The patient is alert and oriented x3, not in any acute distress. Well developed, well nourished. HEENT: Pupils are round and equally reacting to light. EOMI. No scleral icterus. No conjunctival pallor. Normocephalic, atraumatic. No pharyngeal erythema. No thyromegaly. CARDIOVASCULAR: S1 and S2 present. No murmurs, rubs, or gallops. PULMONARY: Chest is clear to auscultation, no wheezing or crackles. ABDOMEN: Soft, nontender, nondistended, normoactive bowel sounds. No palpable organomegaly. MUSCULOSKELETAL: No joint swelling or deformity. EXTREMITIES: No cyanosis, clubbing, or pedal edema. NEUROLOGICAL: Gross neurological examination did not reveal any focal deficits. SKIN: No rashes. - Labs CBC & Chem 7: 01/21/19 10:10 01/21/19 10:10 Assessment and Plan Assessment: 1 paroxysmal atrial fibrillation 2 S/ p left intertrochanteric IM nailing 3 Fall causing left hip fracture, no syncope or LOC 4 Hypertension 5 Anemia requiring blood transfusion
[2019-01-23] MEDS: SENNOSIDES-DOCUSATE SODIUM 1 EACH TAB PO SCH (20:17)
[2019-01-23] MEDS: LATANOPROST 0.005% OPHTH DROPS 2.5 ML BTL LEFT EYE SCH (20:23)
[2019-01-24 06:14] LABS: Basophils % (A) 0 %; Eosinophils # (A) 0.4 k/uL (0-0.7); Eosinophils % (A) 5 %; Hypochromasia Slight; Lymphocytes % (A) 11 %; MCHC 31.9 g/dL (31.0-37.0); MCV 97.3 fL (80.0-100.0); Mean Platelet Volume 7.9; Monocytes # (A) 0.7 k/uL (0-1.0); Monocytes % (A) 8 %; Neutrophils # (A) 6.8 k/uL (1.3-7.7); Neutrophils % (A) 75 %; Platelet Count 339 k/uL (150-450); RBC 2.56 m/uL (3.80-5.40); RDW 14.5 % (11.5-15.5); WBC 9.1 k/uL (3.8-10.6)
[2019-01-24] MEDS: PANTOPRAZOLE 40 MG TABLET PO SCH (06:17)
[2019-01-24] MEDS: HYDROcodone/APAP 5-325MG 1 EACH TAB PO PRN ×2 (06:17→13:00)
[2019-01-24 06:25] LABS: Calcium 8.5 mg/dL (8.4-10.2); Potassium 3.6 mmol/L (3.5-5.1)
[2019-01-24] MEDS: APIXABAN 2.5 MG TABLET PO SCH ×2 (08:22→21:02)
[2019-01-24] MEDS: MULTIVITAMINS, THERA 1 EACH TAB PO SCH (08:22)
[2019-01-24] MEDS: LISINOPRIL-HCTZ 10-12.5 MG 1 EACH TAB PO SCH (08:22)
[2019-01-24] MEDS: BRIMONIDINE TARTRATE 0.2% DROPS 5 ML BTL LEFT EYE SCH ×2 (08:23→21:02)
[2019-01-24] MEDS: METOPROLOL TARTRATE 25 MG TAB PO SCH ×3 (08:23→21:02)
[2019-01-24] MEDS: SODIUM CHLORIDE 0.9% 1,000 ML IV SCH (08:24)
--- NOTE | 2019-01-24 12:09 | P.PN ---
Subjective Progress Note Date: 01/24/19 this is a pleasant 88-year-old female with past medical history significant for hypertension, glaucoma, underwent left intertrochanteric IM nailing, cardiology consultation was initially requested for arrhythmia. Upon review of the EKGs and rhythm strips, it does appear that the patient has paro xysmal atrial fibrillation, on review of prior EKG from a recent admission, she was noted to have atrial flutter at that time as well. This morning she is in a normal sinus rhythm but did have episodes of atrial fibrillation through the night last night. We will discontinue her IV Cardizem this morning, discontinue the Cardizem by mouth and start the patient on oral beta blockers today. Overall the patient feels well she sitting up in her chair at bedside, hemodynamically stable this morning. 01/24/2019 Patient seen and examined this morning, up with physical therapy overall doing well. No further episodes of atrial fibrillation have been noted. Hemodynamically she stable. Objective - Vital Signs Vital signs: Vital Signs Temp 97.3 F L 01/24/19 11:22 Pulse 69 01/24/19 11:22 Resp 16 01/24/19 11:22 BP 121/58 01/24/19 11:22 Pulse Ox 94 L 01/24/19 11:22 Intake & Output 01/23/19 01/24/19 01/24/19 18:59 06:59 18:59 Intake Total 1160 100 840 Balance 1160 100 840 Weight 60.5 kg Intake: Intake, IV Titration 800 360 Amount Magnesium Sulfate-D5w Pmx 200 1 gm In Dextrose/Water 1 100ml.bag @ 100 mls/hr IVPB Q1H [facility] Rx#: [id number] Sodium Chloride 0.9% 1, 600 360 000 ml @ 60 mls/hr IV . [id number] [facility] Rx#:[id number] Oral 360 100 480 Other: Voiding Method Toilet Toilet Diaper Incontinent # Voids 2 1 # Bowel Movements 0 - Exam PHYSICAL EXAMINATION: GENERAL:88-year-old female in no acute distress at the time of my examination HEENT: Head is atraumatic, normocephalic. Pupils equal, round. Sclera anicteric. Conjunctiva are clear. Mucous membranes of the mouth are moist. Neck is supple. There is no elevated jugular venous pressure.no carotid bruit is heard. HEART EXAMINATION: heart S1 S2 1 systolic murmur is heard in the mitral valve area.] CHEST EXAMINATION:[ Lungs are clear to auscultation and precussion. No chest wall tenderness is noted on palpation or with deep breathing.] ABDOMEN: [ Soft, nontender. Bowel sounds are heard. No organomegaly noted]. EXTREMITIES:[ 2+ peripheral pulses with no evidence of peripheral edema and no calf tenderness noted]. NEUROLOGIC [patient is awake, alert and oriented 3 . - Labs CBC & Chem 7: 01/24/19 05:56 01/24/19 05:56 Labs: Abnormal Lab Results - Last 24 Hours (Table) 01/24/19 01/24/19 Range/Units 05:56 05:56 RBC 2.56 L (3.80-5.40) m/uL Hgb 8.0 L (11.4-16.0) gm/dL Hct 25.0 L (34.0-46.0) % Chloride 110 H (98-107) mmol/L BUN 25 H (7-17) mg/dL Glucose 106 H (74-99) mg/dL Assessment and Plan Plan: ASSESSMENT and plan #1 paroxysmal atrial fibrillation #2 S/ p left intertrochanteric IM nailing #3Fall causing left hip fracture, no syncope or LOC #4Hypertension #5Anemia requiring blood transfusion Plan from cardiology's perspective, we'll recommend to continue this patient on her current medications. She may be able to be discharged or transferred to the orthopedic unit from our perspective. We will follow her along with you now on an as-needed basis only, please don't hesitate to call if you have any questions at all. DNP note has been reviewed, I agree with a documented findings and plan of care. Patient was seen and examined.
--- NOTE | 2019-01-24 12:12 | P.PN ---
Progress Note - Text Progress Note Date: 01/24/19 Patient is a very pleasant 88-year-old female who is seen sitting at the bedside for follow up evaluation for her left hip. She is status post left hip intramedullary nail fixation for left intertrochanteric hip fracture. She postop day #8. Patient was planning for discharge to a rehabilitation facility on 01/22/2019. Due to a recent scabies outbreak, family declined discharged to the rehabilitation facility. While remaining into hospital, she entered into atrial fibrillation. She has since been transferred to the [facility]. She continues to be seen and examined by cardiology. Patient states at the bedside she feels she is doing well. She is very happy with her care overall at [facility]. Her pain in her left hip is adequately controlled. She has no new complaints. Physical Exam Intramedullary [place] for Intertrochanteric Fracture: Status post surgical day number 8 Patient is examined lying in sitting at bedside chair Patient is awake and alert, and oriented 3 Vital signs stable Good chest excursion with deep inspiration and expiration No signs or symptoms of DVT; no calf pain Dressing of the left hip is dry and intact with some dried blood/discharge; no erythema, purulence, or signs of infection [place] over the left hip incision sites remain intact No pain with palpation over the surgical sites Full range of motion of ankles bilaterally Dorsiflexion, plantarflexion, and extensor hallucis longus positive sustained on the left Neurovascularly intact bilateral lower extremities Assessment: Status post left intramedullary nail fixation for left intertrochanteric hip fracture Status post fall Atrial fibrillation Anemia requiring transfusion Hypertension Plan: 1. Patient to remain weight-bear as tolerated with the assistance of a walker and physical therapy on the left lower extremity; patient may work with physical therapy to increase mobility and ambulation 2. Keep dressing over the left hip clean, dry, and intact; tinea with daily dressing changes as needed 3. Continue pain control with oral [place] and IV Dilaudid as needed for pain control 4. Patient will continue be seeing examined by cardiology for treatment in regards to atrial fibrillation 5. Continue with anticoagulation therapy her recommendations by internal medicine 6. Medicine to continue following the patient for their other medical diagnosis 7. We'll continue to follow the patient closely; patient is currently clear for discharge from an orthopedic standpoint. Patient is currently waiting for medical clearance from cardiology standpoint prior to discharge. 8. Patient can follow-up with Dr. Griffin Cavazos at [facility] in 1 week following discharge
--- NOTE | 2019-01-24 18:31 | P.PN ---
Subjective Progress Note Date: 01/24/19 Principal diagnosis: hip fracture; status post surgery; POD #6 Atrial fibrillation 88-year-old female with past medical history significant for hypertension, glaucoma, underwent left intertrochanteric IM nailing, cardiology consultation was initially requested for arrhythmia. Upon review of the EKGs and rhythm strips, it does appear that the patient has paroxysmal atrial fibrillation, on review of prior EKG from a recent admission, she was noted to have atrial flutter at that time as well. This morning she is in a normal sinus rhythm but did have episodes of atrial fibrillation through the night last night. We will discontinue her IV Cardizem this morning, discontinue the Cardizem by mouth and start the patient on oral beta blockers today. Overall the patient feels well she sitting up in her chair at bedside, hemodynamically stable this morning. patient is status post hip surgery; POD #6; patient is to be transferred to [facility] facility once stable from cardiology standpoint 01/24/2019 patient is seen and evaluated for follow-up; no further episodes of atrial fibrillation; patient remains hemodynamically stable; patient is status post hip surgery POD #7; patient was cleared for discharge to [facility] facility however day of discharge patient went into atrial fibrillation at which time she was started on IV Cardizem later transitioned to oral Cardizem and then oral beta blockers controlling heart rate; cardiology has cleared patient to be transferred to general medical floor; plan is to continue with telemetry for another 24 hours and possible discharge to [facility] facility if remains stable Objective - Vital Signs Vital signs: Vital Signs Temp 97.3 F L 01/24/19 11:22 Pulse 69 01/24/19 11:22 Resp 16 01/24/19 11:22 BP 121/58 01/24/19 11:22 Pulse Ox 94 L 01/24/19 11:22 Intake & Output 01/23/19 01/24/19 01/24/19 18:59 06:59 18:59 Intake Total 7442 081 5052 Balance 8516 114 5288 Weight 60.5 kg Intake: Intake, IV Titration 800 360 Amount Magnesium Sulfate-D5w Pmx 200 1 gm In Dextrose/Water 1 100ml.bag @ 100 mls/hr IVPB Q1H [facility] Rx#: [id number] Sodium Chloride 0.9% 1, 600 360 000 ml @ 60 mls/hr IV . [id number] [facility] Rx#:[id number] Oral 360 100 720 Other: Voiding Method Toilet Toilet Diaper Incontinent # Voids 2 1 # Bowel Movements 0 - Exam PHYSICAL EXAMINATION: GENERAL: The patient is alert and oriented x3, not in any acute distress. Well developed, well nourished. HEENT: Pupils are round and equally reacting to light. EOMI. No scleral icterus. No conjunctival pallor. Normocephalic, atraumatic. No pharyngeal erythema. No thyromegaly. CARDIOVASCULAR: S1 and S2 present. No murmurs, rubs, or gallops. PULMONARY: Chest is clear to auscultation, no wheezing or crackles. ABDOMEN: Soft, nontender, nondistended, normoactive bowel sounds. No palpable organomegaly. MUSCULOSKELETAL: No joint swelling or deformity. EXTREMITIES: No cyanosis, clubbing, or pedal edema. NEUROLOGICAL: Gross neurological examination did not reveal any focal deficits. SKIN: No rashes. - Labs CBC & Chem 7: 01/24/19 05:56 01/24/19 05:56 Labs: Abnormal Lab Results - Last 24 Hours (Table) 01/24/19 01/24/19 Range/Units 05:56 05:56 RBC 2.56 L (3.80-5.40) m/uL Hgb 8.0 L (11.4-16.0) gm/dL Hct 25.0 L (34.0-46.0) % Chloride 110 H (98-107) mmol/L BUN 25 H (7-17) mg/dL Glucose 106 H (74-99) mg/dL Assessment and Plan Assessment: 1 paroxysmal atrial fibrillation 2 S/ p left intertrochanteric IM nailing 3 Fall causing left hip fracture, no syncope or LOC 4 Hypertension 5 Anemia requiring blood transfusion
[2019-01-24] MEDS: SENNOSIDES-DOCUSATE SODIUM 1 EACH TAB PO SCH (21:03)
[2019-01-24] MEDS: LATANOPROST 0.005% OPHTH DROPS 2.5 ML BTL LEFT EYE SCH (21:52)
[2019-01-25] MEDS: SODIUM CHLORIDE 0.9% 1,000 ML IV SCH (06:57)
[2019-01-25 07:14] LABS: Basophils # (A) 0.1 k/uL (0-0.2); Basophils % (A) 1 %; Eosinophils # (A) 0.3 k/uL (0-0.7); Eosinophils % (A) 4 %; HGB 8.6 gm/dL (11.4-16.0); Hypochromasia Slight; Lymphocytes # (A) 0.9 k/uL (1.0-4.8); Lymphocytes % (A) 10 %; MCH 30.8 pg (25.0-35.0); MCHC 31.8 g/dL (31.0-37.0); Mean Platelet Volume 7.3; Monocytes # (A) 0.5 k/uL (0-1.0); Monocytes % (A) 6 %; Neutrophils # (A) 7.1 k/uL (1.3-7.7); Neutrophils % (A) 79 %; Platelet Count 395 k/uL (150-450); RBC 2.78 m/uL (3.80-5.40); RDW 14.3 % (11.5-15.5)
[2019-01-25 07:25] LABS: Calcium 8.5 mg/dL (8.4-10.2); Potassium 3.6 mmol/L (3.5-5.1)
[2019-01-25] MEDS: METOPROLOL TARTRATE 25 MG TAB PO SCH ×2 (08:18→15:36)
[2019-01-25] MEDS: BRIMONIDINE TARTRATE 0.2% DROPS 5 ML BTL LEFT EYE SCH (08:18)
[2019-01-25] MEDS: PANTOPRAZOLE 40 MG TABLET PO SCH (08:18)
[2019-01-25] MEDS: LISINOPRIL-HCTZ 10-12.5 MG 1 EACH TAB PO SCH (08:18)
[2019-01-25] MEDS: HYDROcodone/APAP 5-325MG 1 EACH TAB PO PRN (08:18)
[2019-01-25] MEDS: APIXABAN 2.5 MG TABLET PO SCH (08:18)
[2019-01-25] MEDS: MULTIVITAMINS, THERA 1 EACH TAB PO SCH (08:18)
[2019-01-25 08:26] VITALS: RESP 16
--- NOTE | 2019-01-25 09:17 | P.PN ---
Subjective Progress Note Date: 01/25/19 This is an 88-year-old female who is status post closed reduction and intramedullary nailing of the left hip. This is postoperative day #8 and patient is seen and evaluated at bedside. Patient states that she has been able to transfer from the bed to a chair and she denies any new complaints today. Patient denies any fever/chills, numbness, weakness, tingling, abdominal pain, shortness of breath or chest pain. Objective - Vital Signs Vital signs: Vital Signs Temp 98.0 F 01/25/19 08:25 Pulse 80 01/25/19 08:25 Resp 16 01/25/19 08:25 BP 159/72 01/25/19 08:25 Pulse Ox 92 L 01/25/19 08:25 Intake & Output 01/24/19 01/25/19 01/25/19 18:59 06:59 18:59 Intake Total 1540 150 Balance 1540 150 Intake: Intake, IV Titration 720 150 Amount Sodium Chloride 0.9% 1, 720 150 000 ml @ 60 mls/hr IV . [id number] [facility] Rx#:[id number] Oral 820 Other: Voiding Method Diaper Incontinent # Voids 2 1 # Bowel Movements 0 - Exam Vital signs are stable. Patient is in no acute distress and is alert and oriented 3. Calf is soft and nontender to palpation. Dressing is clean, dry, and intact. There is minimal swelling of the left lower extremity. Patient has full foot and ankle motion without pain or difficulty. Sensation intact. Neurovascular status and circulatory status are intact. - Labs CBC & Chem 7: 01/25/19 06:07 01/25/19 06:07 Labs: Abnormal Lab Results - Last 24 Hours (Table) 01/25/19 01/25/19 Range/Units 06:07 06:07 RBC 2.78 L (3.80-5.40) m/uL Hgb 8.6 L (11.4-16.0) gm/dL Hct 27.0 L (34.0-46.0) % Lymphocytes # 0.9 L (1.0-4.8) k/uL Chloride 109 H (98-107) mmol/L BUN 23 H (7-17) mg/dL Assessment and Plan Assessment: Hypertension Glaucoma (1) Fall Current Visit: Yes Status: Acute Code(s): W19.XXXA - UNSPECIFIED FALL, INITIAL ENCOUNTER SNOMED Code(s): 8180212 (2) Hip fracture, left Current Visit: Yes Status: Acute Code(s): S72.002A - FRACTURE OF UNSP PART OF NECK OF LEFT FEMUR, INIT SNOMED Code(s): 584418206 Plan: Continue routine postop care and pain control. Anticoagulation per internal medicine. Weightbearing as tolerated with a walker and physical therapy. Daily dressing changes. Appreciate input from internal medicine and cardiology. Planning on discharge to ECF when cleared medically.
[2019-01-25 11:33] VITALS: BMI 22.1
--- NOTE | 2019-01-25 13:34 | XR ---
Limited left hip HISTORY: Increased pain on internal rotation Single frontal view of the left hip correlated to prior left hip 01/17/2019 Patient is status post left open reduction internal fixation of the proximal left femur with similar appearance to prior exam, there are overlying tomer, intertrochanteric fracture only minimally disp laced. There is no dislocation. Bone mineralization is reduced. IMPRESSION: Stable postoperative findings.
[2019-01-25 14:25] VITALS: BP 133/68; PULSE 84; TEMP 98.3
== END 2019-01-25 17:10 | DRG 481 ==
LOC: EC 14:44 → 4SSUR 16:27 → 3SCARD 01-23 00:32 → 4SSUR 01-24 17:50
PROVIDERS: ADMIT Family Medicine; ATTEND Family Medicine
PROC: 0QS736Z Reposition Left Upper Femur with Intramedullary Internal Fixation Device, Percutaneous Approach (ICD-10-PCS; principal; 2019-01-17 09:30)
PROC: 30233N1 Transfusion of Nonautologous Red Blood Cells into Peripheral Vein, Percutaneous Approach (ICD-10-PCS; 2019-01-19)
DX: S72.142A Displaced intertrochanteric fracture of left femur, initial encounter for closed fracture (principal); D62 Acute posthemorrhagic anemia; I47.1 Supraventricular tachycardia; W01.0XXA Fall on same level from slipping, tripping and stumbling without subsequent striking against object, initial encounter; Y92.009 Unspecified place in unspecified non-institutional (private) residence as the place of occurrence of the external cause; E87.6 Hypokalemia; F41.9 Anxiety disorder, unspecified; H40.9 Unspecified glaucoma; I10 Essential (primary) hypertension; I48.0 Paroxysmal atrial fibrillation; K59.00 Constipation, unspecified; Z79.01 Long term (current) use of anticoagulants; Z79.899 Other long term (current) drug therapy
CPT/HCPCS: 36415; 71045; 73501; 73502; 80048; 80053; 81001; 82272; 83735; 84443; 84484; 85025; 85027; 85610; 85730; 86850; 86900; 86901; 86920; 93005; 93306; 96361; 96374; 96375; 96376; 99285

== ENCOUNTER 2019-02-11 23:27 | Emergency (ER) | payer MEDICARE ==
[2019-02-11 23:48] VITALS: TEMP 98.5
[2019-02-12 00:28] LABS: Basophils # (A) 0.1 k/uL (0-0.2); Basophils % (A) 1 %; Eosinophils # (A) 0.7 k/uL (0-0.7); Eosinophils % (A) 8 %; HCT 27.4 % (34.0-46.0); HGB 8.9 gm/dL (11.4-16.0); Hypochromasia Slight; Lymphocytes % (A) 12 %; MCH 31.3 pg (25.0-35.0); MCHC 32.6 g/dL (31.0-37.0); Monocytes # (A) 0.7 k/uL (0-1.0); Monocytes % (A) 8 %; Neutrophils # (A) 5.7 k/uL (1.3-7.7); Neutrophils % (A) 68 %; Platelet Count 514 k/uL (150-450); RBC 2.86 m/uL (3.80-5.40); RDW 13.9 % (11.5-15.5); WBC 8.3 k/uL (3.8-10.6)
[2019-02-12 00:35] LABS: Partial Thromboplastin Time 27.1 sec (22.0-30.0); Prothrombin Time 10.6 sec (9.0-12.0)
[2019-02-12 00:39] LABS: Albumin 2.8 g/dL (3.5-5.0); Calcium 9.1 mg/dL (8.4-10.2); Magnesium 1.9 mg/dL (1.6-2.3); Potassium 4.4 mmol/L (3.5-5.1); Total Bilirubin 0.5 mg/dL (0.2-1.3); Total Protein 5.2 g/dL (6.3-8.2)
--- NOTE | 2019-02-12 01:29 | ED ---
Chest Pain HPI - General Chief Complaint: Chest Pain Stated Complaint: Chest Pain Time Seen by Provider: 02/11/19 23:45 Source: patient, EMS Mode of arrival: EMS Limitations: physical limitation - History of Present Illness Initial Comments: Edith is a pleasant 88-year-old female who presents the ER today from intermediate for evaluation of left-sided chest pain. Patient reports that she did fall on January 15 she underwent hip repair and was suddenly discharged home to rehab facility where she has been participating in rehab including physical therapy. Patient reports that she was able to participate in her physical therapy throughout the day today with no complication. After therapy she was sitting in her room when she began to feel sore. Patient describes it as a dull soreness on the left side of her chest. Pain doesn't seem to be reproducible with palpation. Pain is not associated with diaphoresis, lightheadedness or shortness of breath. Patient reports that she was actually feeling quite well today. She mentioned that the doctor that she was having a discomfort and requested Tylenol or Motrin. He observed her for another hour or 2 but she didn't feel any better so he sent her to the ER for evaluation. Upon arrival to the emergency department patient reports that her pain is been ongoing this evening. No exacerbating or relieving factors. She has no cardiac history has never had a stress test or cardiac catheterization. - Related Data Home Medications Medication Instructions Recorded Confirmed Brimonidine Tartrate [Alphagan P 1 drops LEFT EYE BID 01/15/19 01/15/19 0.2% Ophth Soln] Latanoprost/Pf [Latanoprost 0.005% 1 drop LEFT EYE HS 01/15/19 01/15/19 Eye Drop] Lisinopril-Hctz 10-12.5 mg 1 tab PO DAILY 01/15/19 01/15/19 [Zestoretic 10-12.5] Multivitamins, Thera [Multivitamin 1 tab PO DAILY 01/15/19 01/15/19 (formulary)] Prevident 5,000 Boost Plus 1 applic PO DAILY 01/15/19 01/15/19 Previous Rx's Medication Instructions Recorded Acetaminophen Tab [Tylenol Tab] 1 - 2 tab PO Q8H PRN #90 tablet 01/18/19 HYDROcodone/APAP 5-325MG [[place] 1 tab PO Q6HR PRN #30 tab 01/18/19 5-325] Sennosides [Senokot] 2 tab PO DAILY PRN #60 tablet 01/18/19 Diltiazem Cd [Cardizem CD] 120 mg PO DAILY #30 cap.er.24h 01/22/19 Pantoprazole [Protonix] 40 mg PO AC-BRKFST #30 tablet. 01/22/19 Sennosides-Docusate Sodium 2 each PO HS #30 tab 01/22/19 [Senokot-S] Allergies Allergy/AdvReac Type Severity Reaction Status Date / Time No Known Allergies Allergy Verified 02/11/19 23:49 Review of Systems ROS Statement: Those systems with pertinent positive or pertinent negative responses have been documented in the HPI. ROS Other: All systems not noted in ROS Statement are negative. EKG Findings - EKG Comments: EKG Findings:: EKG was obtained due to complaint of chest pain, EKG was obtained at 2349, rate of 79 rhythm is sinus there is a normal axis, there are normal intervals, W[place] 142, QRS 72, QTc is 417. There are no acute ST elevations or depressions there is no evidence of acute ischemia, infarction or arrhythmia. Past Medical History Past Medical History: Eye Disorder, Hypertension Additional Past Medical History / Comment(s): glaucoma History of Any Multi-Drug Resistant Organisms: None Reported Past Surgical History: No Surgical Hx Reported, Orthopedic Surgery Additional Past Surgical History / Comment(s): LEFT HIP 01/17/2019 FROM A FALL AT [facility] Past Anesthesia/Blood Transfusion Reactions: Unable to Obtain Past Psychological History: No Psychological Hx Reported Smoking Status: Never smoker Past Alcohol Use History: None Reported Past Drug Use History: None Reported General Exam - General Exam Comments Initial Comments: Physical Exam GENERAL: Patient is well-developed and well-nourished. Patient is nontoxic and well- hydrated and is in no distress. HENT: Normocephalic, Atraumatic. EYES: PERRL, EOMI PULMONARY: Unlabored respirations. No audible rales rhonchi or wheezing was noted. CARDIOVASCULAR: holosystolic murmur consistent with aortic stenosis ABDOMEN: Soft and nontender with normal bowel sounds. SKIN: Skin is clear with no lesions or rashes and otherwise unremarkable. : Deferred NEUROLOGIC: Patient is alert and oriented x3. Moving all extremities spontaneously MUSCULOSKELETAL: Normal extremities with adequate strength and full range of motion. No lower extremity swelling or edema. No calf tenderness. PSYCHIATRIC: Normal psychiatric evaluation. Limitations: physical limitation Course Vital Signs 02/11/19 02/11/19 02/12/19 23:44 23:53 01:36 Temperature 98.5 F Pulse Rate 75 78 Pulse Rate [ 80 Apical] Respiratory 15 16 Rate Blood Pressure 140/67 138/66 O2 Sat by Pulse 96 96 Oximetry Chest Pain [facility] The patient was seen and evaluated. Patient has had constant discomfort in her entire left side of her chest since participating in physical therapy exercises earlier in the day. Had no pain with exertion no pain with exercise. Pain is been present for a number of hours with no exacerbating or relieving factors. Patient has no cardiac history. Initial troponin was negative and given that the pain is been persistent for a number of hours and feel that this is adequate to rule out cardiac pathology. Given that the patient has had recent surgery a CT pulmonary embolism study was obtained and revealed no acute pathology no signs of PE there are mild pulmonary effusions. At this time patient is eager for return to intermediate. Patient is eager to participate in her physical therapy she feels she is recovering well from her hip fracture. All questions pertaining care were answered return parameters were discussed patient was discharged home in stable condition. Disposition Clinical Impression: Atypical chest pain Disposition: HOME SELF-CARE Condition: Stable Is patient prescribed a controlled substance at d/c from ED?: No Referrals: Virgilio Wynn MD [Primary Care Provider] - 1-2 days
[2019-02-12 01:37] VITALS: BP 138/66; PULSE 78; RESP 16
--- NOTE | 2019-02-12 02:32 | CT ---
EXAMINATION TYPE: CT chest angio for PE DATE OF EXAM: 02/12/2019 COMPARISON: None HISTORY: Chest pain CT DLP: 201.7 mGycm Automated exposure control for dose reduction was used. CONTRAST: Performed with IV Contrast, patient injected with 75 mL of Isovue 370. Multiple axial sections were obtained from the thoracic inlet to the diaphragm with intravenous contr ast. There are 3-D post processed images. 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 Thoracic aorta shows no aneurysm or dissection. Heart is enlarged. There is no pericardial effusion. There is moderate bilateral pleural effusion with basilar pulmonary atelectasis. There is normal contrast opacification of the pulmonary arteries. There are no filling defects. There is mild compression deformity of T2 and T3 vertebra up to 15%. IMPRESSION: No evidence of pulmonary embolism. Pleural effusions and basilar atelectasis could relate to chronic congestive heart failure. Large retrosternal goiter. Goiter appears unchanged compared to old CT scan 07/10/2010.
== END 2019-02-12 03:28 | disposition home or self-care (01) ==
LOC: EC 23:27
DX: R07.89 Other chest pain (principal); J90 Pleural effusion, not elsewhere classified; R01.1 Cardiac murmur, unspecified; H40.9 Unspecified glaucoma; I10 Essential (primary) hypertension; Z87.81 Personal history of (healed) traumatic fracture; Z79.899 Other long term (current) drug therapy; Z98.890 Other specified postprocedural states
CPT/HCPCS: 36415; 93005; 83880; 80053; 83735; 84484; 85025; 85610; 85730; 71275; 99285; Q9967

== ENCOUNTER → 2021-04-24 | Outpatient (CLI) | payer MEDICARE ==
--- NOTE | 2021-04-24 16:33 | US ---
EXAMINATION TYPE: US venous doppler duplex LE LT DATE OF EXAM: 04/24/2021 4:14 PM COMPARISON: NONE CLINICAL HISTORY: R60.0 localized edema. Left leg swelling SIDE PERFORMED: Left TECHNIQUE: The lower extremity deep venous system is examined utilizing real time linear array sonog rena with graded compression, doppler sonography and color-flow sonography. VESSELS IMAGED: Common Femoral Vein Deep Femoral Vein Greater Saphenous Vein * Femoral Vein Popliteal Vein Small Saphenous Vein * Proximal Calf Veins (* superficial vessels) Left Leg: Negative for DVT Grayscale, color doppler, spectral doppler imaging performed of the deep veins of the left lower extr emity. There is normal flow, compressibility, vascular waveforms. IMPRESSION: No ultrasound evidence for acute DVT in the left lower extremity.
--- NOTE | 2021-04-25 08:11 | XR ---
EXAMINATION TYPE: XR ankle complete LT DATE OF EXAM: 04/24/2021 COMPARISON: NONE HISTORY: Small FINDINGS: Three views of the ankle demonstrate the ankle mortise to be intact and symmetric. The joint spaces are preserved. The osseous structures are intact. Osteopenia with diffuse soft tissue edema. Calcan eal small spurs are seen and there is soft tissue calcification. IMPRESSION: 1. No definite acute fracture or dislocation, if symptoms persist follow-up study in 7 to 10 days wou ld be suggested. 2. Osteopenia with diffuse soft tissue edema.
--- NOTE | 2021-04-25 08:27 | XR ---
EXAMINATION TYPE: XR foot complete LT DATE OF EXAM: 04/24/2021 COMPARISON: NONE HISTORY: Swelling TECHNIQUE: Three views are submitted. FINDINGS: The osseous structures are intact. There is no acute fracture or dislocation. Soft tissue edema is noted there is diffuse osteopenia. Narrowing of the DIP, PIP and MTP joints are seen. No erosive chelsi nges. Calcaneal spurs and soft tissue edema noted. IMPRESSION: 1. No acute fracture or dislocation. If symptoms persist, follow-up exam in 7 to 10 days could be ob tained. 2. Diffuse soft tissue edema. 3. Osteopenia
== END | disposition home or self-care (01) ==
LOC: RADUSWWP 15:55
PROVIDERS: ATTEND Family Medicine
DX: M85.872 Other specified disorders of bone density and structure, left ankle and foot (principal); M79.89 Other specified soft tissue disorders; R60.0 Localized edema
CPT/HCPCS: 93005

== ENCOUNTER 2021-05-03 15:10 | Observation (INO) | payer MEDICARE ==
[2021-05-03] MEDS ORDERED: SODIUM CHLORIDE 0.9% 1,000 ML IV STA (18:32)
--- NOTE | 2021-05-03 19:01 | ED ---
General Adult HPI - General Chief complaint: Extremity Injury, Lower Stated complaint: L leg swelling-Sent by Dr. Wynn Time Seen by Provider: 05/03/21 18:31 Source: patient, family, RN notes reviewed Mode of arrival: wheelchair Limitations: no limitations - History of Present Illness Initial comments: This is a pleasant 89-year-old female presents to MRSA department complaining of bilateral leg swelling. Left is worse than the right. Patient has been seen and treated by her primary care physician with antibiotics which actually finished today. The edema continues. There is also mild redness to the left lower leg. Patient had a venous Doppler done on April 24 which was negative. Patient states she feels well otherwise. No headache, no fever or chills, no changes in vision or hearing, no sore throat or difficulty with speech, no neck pain, no chest pain or shortness of breath, no abdominal pain, no nausea or vomiting, no changes in urination or bowel movements, no numbness or tingling, no extremity pain, no skin rashes or lesions. patient is denying any pain. No history of recent surgeries or other immobiliza tion. - Related Data Home Medications Medication Instructions Recorded Confirmed Latanoprost/Pf [Latanoprost 0.005% 1 drop LEFT EYE HS 01/15/19 05/03/21 Eye Drop] Lisinopril-Hctz 10-12.5 mg 1 tab PO DAILY 01/15/19 05/03/21 [Zestoretic 10-12.5] Prevident 5,000 Boost Plus 1 applic DENTAL HS 01/15/19 05/03/21 Brimonidine Tartrate/Timolol 1 drop LEFT EYE DAILY 05/03/21 05/03/21 [Combigan 0.2%-0.5% Eye Drops] Dorzolamide 2% [Trusopt 2%] 1 drop LEFT EYE DAILY 05/03/21 05/03/21 Previous Rx's Medication Instructions Recorded Diltiazem Cd [Cardizem CD] 120 mg PO DAILY #30 cap.er.24h 01/22/19 Allergies Allergy/AdvReac Type Severity Reaction Status Date / Time No Known Allergies Allergy Verified 05/03/21 19:57 Review of Systems ROS Statement: Those systems with pertinent positive or pertinent negative responses have been documented in the HPI. ROS Other: All systems not noted in ROS Statement are negative. Past Medical History Past Medical History: Eye Disorder, Hypertension Additional Past Medical History / Comment(s): glaucoma History of Any Multi-Drug Resistant Organisms: None Reported Past Surgical History: No Surgical Hx Reported, Orthopedic Surgery Additional Past Surgical History / Comment(s): LEFT HIP 01/17/2019 FROM A FALL AT [facility] Past Anesthesia/Blood Transfusion Reactions: Unable to Obtain Past Psychological History: No Psychological Hx Reported Smoking Status: Never smoker Past Alcohol Use History: None Reported Past Drug Use History: None Reported General Exam - General Exam Comments Initial Comments: Abdomen female in no acute distress. Does not appear to be ill or toxic. Cranial nerves II through XII grossly intact Limitations: no limitations General appearance: alert, in no apparent distress Head exam: Present: atraumatic, normocephalic, normal inspection Eye exam: Present: normal appearance, PERRL, EOMI. Absent: scleral icterus, conjunctival injection, periorbital swelling ENT exam: Present: normal exam, mucous membranes moist Neck exam: Present: normal inspection. Absent: tenderness, meningismus, lymphadenopathy Respiratory exam: Present: normal lung sounds bilaterally. Absent: respiratory distress, wheezes, rales, rhonchi, stridor Cardiovascular Exam: Present: regular rate, normal rhythm, normal heart sounds. Absent: systolic murmur, diastolic murmur, rubs, gallop, clicks GI/Abdominal exam: Present: soft, normal bowel sounds. Absent: distended, tenderness, guarding, rebound, rigid Extremities exam: Present: normal inspection, full ROM, normal capillary refill, pedal edema (Bilateral pedal edema extending up to the lower leg. Left greater than right. Pedal pulses intact. Mild erythema on the left but no definitive evidence of infectious process. Homans sign is negative full range of motion all major joints. Full strength all major muscle groups.). Absent: tenderness, joint swelling, calf tenderness Back exam: Present: normal inspection Neurological exam: Present: alert, oriented X3, CN II-XII intact Psychiatric exam: Present: normal affect, normal mood Skin exam: Present: warm, dry, intact, normal color. Absent: rash, cyanosis, diaphoretic, urticaria, vesicles Course Vital Signs 05/03/21 05/03/21 16:42 18:50 Temperature 97.7 F Pulse Rate 62 76 Respiratory 18 16 Rate Blood Pressure 147/65 142/79 O2 Sat by Pulse 99 99 Oximetry EKG Findings - EKG Comments: EKG Findings:: EKG done at 19 attending physician is a rate of 77, normal intervals, normal axis, a slight artifact, no evidence of acute S changes. Patient does meet voltage criteria for help Medical Decision Making - Medical Decision Making Patient has had bilateral lower extremity edema with left greater than right for over 2 weeks. Has been treated with antibiotics which she is finishing today. Had a negative venous Dopplers an outpatient. We'll repeat the venous Doppler and ordered baseline lab work. Patient has no shortness breath or chest pain. This unlikely to be cardiac etiology. However we'll add on a BNP and EKG. Plan for reevaluation. Had a long discussion with the patient's acquaintance who is here with her. Apparently these are friends from [place]. Patient's son lives out of area in [place] and is discharged from care. Patient has another who is on the [facility]. Apparently the patient has not been taking her medications appropriately. He has had increasing memory issues. Not taking her Care of herself at home. According to the patient's friend who checks in on her daily, the patient has had her medications at home and they cannot be located. Will discuss with the patient's primary care physician. Case discussed with Dr. Wynn. Patient will be admitted for observation, possible placement. - Lab Data Result diagrams: 05/03/21 18:53 05/03/21 18:53 Lab Results 05/03/21 05/03/21 05/03/21 Range/Units 18:53 18:53 18:53 WBC 6.7 (3.8-10.6) k/uL RBC 3.68 L (3.80-5.40) m/uL Hgb 12.1 (11.4-16.0) gm/dL Hct 36.5 (34.0-46.0) % MCV 99.1 (80.0-100.0) fL MCH 33.0 (25.0-35.0) pg MCHC 33.3 (31.0-37.0) g/dL RDW 13.0 (11.5-15.5) % Plt Count 341 (150-450) k/uL MPV 7.1 Neutrophils % 71 % Lymphocytes % 15 % Monocytes % 7 % Eosinophils % 3 % Basophils % 1 % Neutrophils # 4.8 (1.3-7.7) k/uL Lymphocytes # 1.0 (1.0-4.8) k/uL Monocytes # 0.5 (0-1.0) k/uL Eosinophils # 0.2 (0-0.7) k/uL Basophils # 0.1 (0-0.2) k/uL PT 10.0 (9.0-12.0) sec INR 0.9 (<1.2) APTT 22.8 (22.0-30.0) sec Sodium 137 (137-145) mmol/L Potassium 4.5 (3.5-5.1) mmol/L Chloride 105 (98-107) mmol/L Carbon Dioxide 25 (22-30) mmol/L Anion Gap 7 mmol/L BUN 38 H (7-17) mg/dL Creatinine 0.96 (0.52-1.04) mg/dL Est GFR (CKD-EPI)AfAm 61 (>60 ml/min/1.73 sqM) Est GFR (CKD-EPI)NonAf 53 (>60 ml/min/1.73 sqM) Glucose 93 (74-99) mg/dL Calcium 9.5 (8.4-10.2) mg/dL Magnesium 2.2 (1.6-2.3) mg/dL Total Bilirubin 0.7 (0.2-1.3) mg/dL AST 34 (14-36) U/L ALT 17 (4-34) U/L Alkaline Phosphatase 134 H (38-126) U/L Troponin I (0.000-0.034) ng/mL NT-Pro-B Natriuret Pep pg/mL Total Protein 6.9 (6.3-8.2) g/dL Albumin 4.0 (3.5-5.0) g/dL Urine Color Urine Appearance (Clear) Urine pH (5.0-8.0) Ur Specific [place] (1.001-1.035) Urine Protein (Negative) Urine Glucose (UA) (Negative) Urine Ketones (Negative) Urine Blood (Negative) Urine Nitrite (Negative) Urine Bilirubin (Negative) Urine Urobilinogen (<2.0) mg/dL Ur Leukocyte Esterase (Negative) 05/03/21 05/03/21 05/03/21 Range/Units 18:53 18:53 19:56 WBC (3.8-10.6) k/uL RBC (3.80-5.40) m/uL Hgb (11.4-16.0) gm/dL Hct (34.0-46.0) % MCV (80.0-100.0) fL MCH (25.0-35.0) pg MCHC (31.0-37.0) g/dL RDW (11.5-15.5) % Plt Count (150-450) k/uL MPV Neutrophils % % Lymphocytes % % Monocytes % % Eosinophils % % Basophils % % Neutrophils # (1.3-7.7) k/uL Lymphocytes # (1.0-4.8) k/uL Monocytes # (0-1.0) k/uL Eosinophils # (0-0.7) k/uL Basophils # (0-0.2) k/uL PT (9.0-12.0) sec INR (<1.2) APTT (22.0-30.0) sec Sodium (137-145) mmol/L Potassium (3.5-5.1) mmol/L Chloride (98-107) mmol/L Carbon Dioxide (22-30) mmol/L Anion Gap mmol/L BUN (7-17) mg/dL Creatinine (0.52-1.04) mg/dL Est GFR (CKD-EPI)AfAm (>60 ml/min/1.73 sqM) Est GFR (CKD-EPI)NonAf (>60 ml/min/1.73 sqM) Glucose (74-99) mg/dL Calcium (8.4-10.2) mg/dL Magnesium (1.6-2.3) mg/dL Total Bilirubin (0.2-1.3) mg/dL AST (14-36) U/L ALT (4-34) U/L Alkaline Phosphatase (38-126) U/L Troponin I <0.012 (0.000-0.034) ng/mL NT-Pro-B Natriuret Pep 734 pg/mL Total Protein (6.3-8.2) g/dL Albumin (3.5-5.0) g/dL Urine Color Light Yellow Urine Appearance Clear (Clear) Urine pH 7.5 (5.0-8.0) Ur Specific [place] 1.010 (1.001-1.035) Urine Protein Negative (Negative) Urine Glucose (UA) Negative (Negative) Urine Ketones Negative (Negative) Urine Blood Negative (Negative) Urine Nitrite Negative (Negative) Urine Bilirubin Negative (Negative) Urine Urobilinogen <2.0 (<2.0) mg/dL Ur Leukocyte Esterase Negative (Negative) - Radiology Data Radiology results: report reviewed, image reviewed Disposition Clinical Impression: Bilateral leg edema, Cellulitis of left lower extremity, Functional memory problem Disposition: ADMITTED IP TO THIS HOSP Condition: Stable Referrals: Virgilio Wynn MD [Primary Care Provider] - 1-2 days Time of Disposition: 20:38
[2021-05-03 19:10] LABS: Basophils # (A) 0.1 k/uL (0-0.2); Basophils % (A) 1 %; Eosinophils # (A) 0.2 k/uL (0-0.7); Eosinophils % (A) 3 %; HCT 36.5 % (34.0-46.0); HGB 12.1 gm/dL (11.4-16.0); Lymphocytes % (A) 15 %; MCHC 33.3 g/dL (31.0-37.0); MCV 99.1 fL (80.0-100.0); Mean Platelet Volume 7.1; Monocytes # (A) 0.5 k/uL (0-1.0); Monocytes % (A) 7 %; Neutrophils # (A) 4.8 k/uL (1.3-7.7); Neutrophils % (A) 71 %; Platelet Count 341 k/uL (150-450); RBC 3.68 m/uL (3.80-5.40); WBC 6.7 k/uL (3.8-10.6)
[2021-05-03 19:18] LABS: Calcium 9.5 mg/dL (8.4-10.2); Magnesium 2.2 mg/dL (1.6-2.3); Potassium 4.5 mmol/L (3.5-5.1); Total Bilirubin 0.7 mg/dL (0.2-1.3); Total Protein 6.9 g/dL (6.3-8.2)
[2021-05-03 19:22] LABS: INR 0.9 (<1.2); Partial Thromboplastin Time 22.8 sec (22.0-30.0)
--- NOTE | 2021-05-03 20:02 | US ---
EXAMINATION TYPE: US venous doppler duplex LE BI DATE OF EXAM: 05/03/2021 7:46 PM COMPARISON: US Lt lower extremity 04/24/21 CLINICAL HISTORY: Bilateral leg edema. Bilateral leg edema SIDE PERFORMED: Bilateral TECHNIQUE: The lower extremity deep venous system is examined utilizing real time linear array sonog rena with graded compression, doppler sonography and color-flow sonography. VESSELS IMAGED: Common Femoral Vein Deep Femoral Vein Greater Saphenous Vein * Femoral Vein Popliteal Vein Small Saphenous Vein * Proximal Calf Veins (* superficial vessels) FINDINGS: Grayscale, color doppler, spectral doppler imaging performed of the deep veins of the lower extremiti es. There is normal flow, compressibility, vascular waveforms, with the exception of the left poplit eal veins which could not be well examined. IMPRESSION: 1. RIGHT LOWER EXTREMITY: Negative for DVT 2. LEFT LOWER EXTREMITY: Negative for DVT as seen, but difficulty visualizing popliteal veins due t o edematous tissue. Varicose veins noted left medial mid thigh.
[2021-05-03 20:04] LABS: Appearance,Urine Clear (Clear); Bilirubin,Urine Negative (Negative); Blood,Urine Negative (Negative); Color,Urine Light Yellow; Glucose,Urine (UA) Negative (Negative); Ketones,Urine Negative (Negative); Leukocyte Esterase,Urine Negative (Negative); Nitrite,Urine Negative (Negative); PH, Urine 7.5 (5.0-8.0); Protein,Urine Negative (Negative); Urobilinogen,Urine <2.0 mg/dL (<2.0)
--- NOTE | 2021-05-03 20:04 | XR ---
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 There is no focal air space opacity, pleural effusion, or pneumothorax. The cardiac silhouette size i s within normal limits. The osseous structures are intact. IMPRESSION: No acute process.
[2021-05-03] MEDS ORDERED: ACETAMINOPHEN TAB 325 MG TAB PO PRN (21:41)
[2021-05-03] MEDS ORDERED: NALOXONE 0.4 MG/ML 1 ML VIAL IV PRN (21:41)
[2021-05-04] MEDS ORDERED: ENOXAPARIN 40 MG/0.4 ML SYRINGE SQ SCH (01:00)
[2021-05-04 07:38] VITALS: BP 154/70; RESP 16; TEMP 98.4
[2021-05-04 09:08] VITALS: PULSE 80
[2021-05-04] MEDS ORDERED: LISINOPRIL-HCTZ 10-12.5 MG 1 EACH TAB PO SCH (09:30)
[2021-05-04] MEDS ORDERED: TIMOLOL 0.5% OPHTH DROPS 5 ML BTL LEFT EYE SCH (09:30)
[2021-05-04] MEDS ORDERED: DORZOLAMIDE HCL 2% DROPS 10 ML BTL LEFT EYE SCH (09:30)
[2021-05-04] MEDS ORDERED: DILTIAZEM CD 120 MG CAP.ER.24H PO SCH (09:30)
[2021-05-04] MEDS ORDERED: BRIMONIDINE TARTRATE 0.2% DROPS 5 ML BTL LEFT EYE SCH (09:30)
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
--- NOTE | 2021-05-04 11:26 | P.DS ---
Providers Date of admission: 05/04/21 01:20 Expected date of discharge: 05/04/21 Attending physician: Virgilio Wynn Primary care physician: Virgilio Wynn [facility] Course: Patient is a very pleasant 89-year-old female that was brought to the emergency room by friends for persistent leg edema. Patient has a pertinent history of glaucoma, hypertension, and A. fib. Patient lives alone independently and can have occasional memory issues. Patient was seen in the office previously for left leg edema, and was given antibiotics. Leg warmth and redness has improved, but edema is still present. Patient denies pain in left lower leg. 2 u ltrasounds have been done on both have been negative for DVT. BNP was 734, white count was 6.7. Chest x-ray was negative. Patient son and POA was contacted, patient's case was discussed. He states that his mom has been doing well at home but eats very high salt diet of TV dinners and cans of soup. Patient will be set up with Meals on Wheels for a lower salt option, home care will be ordered to assist patient apply compression stockings to help with edema. Will also help ensure the patient is taking medications as directed. Placement is not appropriate at this time. Patient and POA are a greeable to plan of care. Patient will be discharged today in follow-up in the office. Assessment: Bilateral lower leg edema, left greater than right Atrial fibrillation with controlled ventricular response Hypertension Glaucoma Memory impairment Health Concerns: multiple comorbidities Pertinent Studies: Chest x-ray negative Ultrasound of bilateral lower extremities negative for DVT Patient Condition at Discharge: Stable Plan - Discharge Summary Discharge Rx Participant: Yes New Discharge Prescriptions: Continue Latanoprost/Pf [Latanoprost 0.005% Eye Drop] 1 drop LEFT EYE HS Prevident 5,000 Boost Plus 1 applic DENTAL HS Dorzolamide 2% [Trusopt 2%] 1 drop LEFT EYE DAILY Lisinopril-Hctz 10-12.5 mg [Zestoretic 10-12.5] 1 tab PO DAILY 30 Days #30 tab Brimonidine Tartrate/Timolol [Combigan 0.2%-0.5% Eye Drops] 1 drop LEFT EYE DAILY Diltiazem Cd [Cardizem CD] 120 mg PO DAILY 30 Days #30 cap Discharge Medication List Latanoprost/Pf [Latanoprost 0.005% Eye Drop] 1 drop LEFT EYE HS 01/15/19 [History] Prevident 5,000 Boost Plus 1 applic DENTAL HS 01/15/19 [History] Brimonidine Tartrate/Timolol [Combigan 0.2%-0.5% Eye Drops] 1 drop LEFT EYE DAILY 05/03/21 [History] Dorzolamide 2% [Trusopt 2%] 1 drop LEFT EYE DAILY 05/03/21 [History] Diltiazem Cd [Cardizem CD] 120 mg PO DAILY 30 Days #30 cap 05/04/21 [Rx] Lisinopril-Hctz 10-12.5 mg [Zestoretic 10-12.5] 1 tab PO DAILY 30 Days #30 tab 05/04/21 [Rx] Follow up Appointment(s)/Referral(s): Virgilio Wynn MD [Primary Care Provider] - 1-2 days Patient Instructions/Handouts: Low-Sodium Diet (DC), Leg Edema (ED) Discharge Disposition: HOME WITH HOME HEALTH SERVICES
[2021-05-04] MEDS ORDERED: LATANOPROST 0.005% OPHTH DROPS 2.5 ML BTL LEFT EYE SCH (21:00)
== END 2021-05-04 15:20 | disposition home health service (06) ==
LOC: EC 15:10 → 6NMEDSUR 05-04 01:20
PROVIDERS: ADMIT Family Medicine; ATTEND Family Medicine
DX: R60.0 Localized edema (principal); I48.91 Unspecified atrial fibrillation; I10 Essential (primary) hypertension; H40.9 Unspecified glaucoma; R41.3 Other amnesia; Z79.899 Other long term (current) drug therapy; Z91.81 History of falling; Z71.9 Counseling, unspecified; Z71.3 Dietary counseling and surveillance
CPT/HCPCS: 96366 ×2; 96365; 96372; 99285; 36415; 93005; 83880; 80053; 83735; 84484; 85025; 85610; 85730; 81003; 71045; 93970; G0378; J0690 ×2; J1650